=== PATIENT | female | born 1990 | race Two or more races ===

== ENCOUNTER 2022-01-01 16:59 | Outpatient (REF) | payer OTHER, SELFPAY ==
--- NOTE | ~2022-01-01 | XR_ITS ---
EXAMINATION: XR LUMBOSACRAL SPINE CLINICAL INFORMATION: Lower back pain. COMPARISON: None TECHNIQUE: AP, lateral, and both oblique views of the lumbosacral spine. FINDINGS: Vertebral body heights and alignment are normal. There is mild disc space narrowing at L5-S1. The remaining disc spaces are relatively well-maintained. No acute fracture or spondylolisthesis is seen. The posterior elements are intact. An intrauterine device is noted. XR/XR lumbar spine 2-3V IMPRESSION: 1. There is mild degenerative disc disease at L5-S1. 2. No acute fracture or spondylolisthesis is seen.
== END 2022-01-01 17:00 | disposition home or self-care (01) ==
LOC: HO.XRAY 16:59
PROVIDERS: PCP Family Medicine; Visit Provider Family Medicine
DX: M54.50 Low back pain, unspecified (principal)
CPT/HCPCS: 72100

== ENCOUNTER 2022-11-12 13:52 | Outpatient (REF) | payer OTHER, SELFPAY ==
--- NOTE | ~2022-11-12 | US_ITS ---
EXAMINATION: US PELVIS CLINICAL INFORMATION: Intermenstrual bleeding, IUD check. COMPARISON: None available. TECHNIQUE: Ultrasound of the pelvis is performed using both transabdominal and transvaginal transducers along with Doppler. Transvaginal imaging is performed due to inadequate visualization transabdominally. FINDINGS: Uterus: The uterus is anteverted, retroflexed and measures 9.4 x 5.3 x 5.5 cm. The there is an IUD well located within the endometrial canal. Endometrium is not visualized visualized hence thickness cannot be calculated. The uterus is smooth in contour and has normal myometrial echogenicity. No visible fibroid. There are multiple small nabothian cysts seen. Adnexa: Both ovaries are visualized. There is normal color flow to the adnexa. There is no ovarian torsion. There is no pelvic ascites or fluid collection. Right ovary measures 2.1 x 1.4 x 1.5 cm and volume 2.3 mL. It appears unremarkable. Previously right ovary measured 2.8 x 2.1 x 2.6 cm. Left ovary measures 2.2 x 1.7 x 2.5 cm and volume 4.9 mL. It appears unremarkable. Previously it measured 2.3 x 1.4 x 2.1 cm. There is no free fluid in cul-de-sac. US/US pelvic and transvaginal IMPRESSION: 1. IUD well located within the endometrial canal. The uterus is retroflexed and anteverted. 2. Small nabothian cysts in the cervix. 3. The ovaries are unremarkable. 4. There is no free fluid in the cul-de-sac..
== END 2022-11-12 13:53 | disposition home or self-care (01) ==
LOC: HO.US 13:52
PROVIDERS: PCP Family Medicine; Visit Provider Advanced Practice Midwife
DX: Z30.431 Encounter for routine checking of intrauterine contraceptive device (principal)
CPT/HCPCS: 76830; 76856

== ENCOUNTER 2024-03-02 08:10 | Outpatient (REF) | payer OTHER, SELFPAY ==
[2024-03-02 11:19] LABS: MANUAL DIFF FLAG NO
[2024-03-02 11:29] LABS: Basophils Percent Auto 0.4 % (0-2); Eosinophils Absolute Auto 0.1 X10*3/uL (0.0-0.4); Eosinophils Percent Auto 1.9 % (0-4); Hematocrit 35.2 % (37.0-47.0); Hemoglobin 11.3 g/dl (12.0-16.0); Imm Gran Abs Auto 0.01 X10*3/uL (0.00-0.03); Imm Gran Pct Auto 0.2 % (0.0-0.4); Lymphocytes Absolute Auto 0.8 X10*3/uL (1.2-4.9); Lymphocytes Percent Auto 17.5 % (20-40); Mean Corpuscular HGB Conc 32.1 g/dl (31.0-35.0); Mean Corpuscular Hemoglobin 26.6 pg (27.0-33.0); Mean Corpuscular Volume 82.8 fL (80.0-98.0); Mean Platelet Volume 10.1 fL (9.4-12.3); Monocytes Absolute Auto 0.3 X10*3/uL (0.1-1.2); Monocytes Percent Auto 5.9 % (2-11); Neutrophils Absolute Auto 3.5 x10*3/uL (2.0-8.3); Neutrophils Percent Auto 74.1 % (45-73); Platelet Count 275 X10*3/uL (160-400); Red Blood Count 4.25 X10*6/uL (4.20-5.50); Red Cell Distribution Width 14.3 % (11.0-16.0); White Blood Count 4.7 X10*3/uL (4.8-10.8)
[2024-03-02 11:58] LABS: HIV AB/AG Nonreactive (Nonreactive); HIV Num 1 0.06 S/CO (0.00-0.99); Syphilis Screen Nonreactive (Nonreactive); ~HepC Num1 0.12 S/CO (0.00-0.79); ~Hepatitis C Antibody Nonreactive (Nonreactive)
[2024-03-02 12:01] LABS: Vitamin B12 411 pg/mL (200-900)
[2024-03-02 12:05] LABS: Anion Gap 12 (12-20); Blood Urea Nitrogen 9 mg/dL (9-16); Calcium 9.3 mg/dL (8.4-10.2); Carbon Dioxide 23 mmol/L (22-29); Chloride 110 mmol/L (96-108); Cholesterol 133 mg/dL (<200); Estimated Glomerular Filt Rate > 60; Ferritin 10 ng/mL (10-122); Glucose Random 96 mg/dL (60-115); HDL Cholesterol 45 mg/dL (>40); Iron 78 mcg/dL (30-160); LDL Cholesterol Calculated 76 mg/dL (<100); Percent Iron Saturation 22 % (15-50); Potassium 4.6 mmol/L (3.3-5.1); Sodium 140 mmol/L (135-145); TSH reflex Free T4 1.65 uIU/mL (0.32-4.0); Total Iron Binding Capacity 359 mcg/dL (228-428); Triglycerides 61 mg/dL (<150); Unsaturated Iron Binding 281 ug/dL
== END 2024-03-02 08:11 | disposition home or self-care (01) ==
LOC: HO.HHCL 08:10
PROVIDERS: Visit Provider Family Medicine
DX: Z00.00 Encounter for general adult medical examination without abnormal findings (principal); Z83.3 Family history of diabetes mellitus; Z11.3 Encounter for screening for infections with a predominantly sexual mode of transmission; D64.9 Anemia, unspecified
CPT/HCPCS: 36415; 80048; 80061; 82607; 82728; 83540; 84443; 85025; 86780; 86803; 87389

== ENCOUNTER 2024-11-06 17:27 | Outpatient (REF) | payer OTHER, SELFPAY ==
--- OUTSIDE RECORDS SUMMARY | 2024-11-06 17:29 | XMS_ITS | Clinical Summary ---
Author Organization [facility] Address [address] [place] [address] Phone Care Team Providers Care Car Checker Name Role Phone Enid Elizabeth MD Primary Care Provider [phone]- [phone] Allergies No known active allergies Medications ondansetron ODT (ZOFRAN-ODT) 4 mg disintegrating tabletIndications:N ausea and vomiting, unspecified vomiting type Dissolve 1 tablet (4 mg total) on top of the tongue every 8 (eight) hours if needed for nausea or vomiting for up to 10 doses. 10 tablet Active Encounters Date Type Department Care Team Description 09/10/2024 3:30 PM EDT - 09/10/2024 10:08 PM EDT Emergency [facility] Emergency [address] [place] [address] Nausea and vomiting, unspecified vomiting type (Primary Dx); Abdominal pain, epigastric Discharge Disposition: Home or Self Care from Last 3 Months Surgical History Surgery Date Site/Laterality Comments OTHER SURGICAL HISTORY PROCEDURE: DENIES PREVIOUS SURGERY OTHER SURGICAL HISTORY PROCEDURE: ID PREPARATION MOULAGE CUSTOM BREAST IMPLANT; COMMENT: 2017 Medical History Medical History Date Comments ASCUS of cervix with negativ e high risk HPV 07/04/15 DX:ASCUS of cervix with nega tive high risk HPV Fe deficiency anemia DX:Fe defic iency anemia Anxiety state DX:Anxiety state Migraine without aura DX:Migrain e without aura 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 Family History Medical History Relation Name Comments Arthritis Maternal Grandmother Breast cancer Maternal Grandmother Diabetes Maternal Grandmother Hypertension Maternal Grandmother Hypertension Mother Stroke Mother Breast cancer Other cousins Esophageal cancer Other chemothera py-alive Colon cancer Neg Hx Ovarian cancer Neg Hx Prostate cancer Neg Hx Relation Name Status Comments Maternal Grandmother Mother Other Social History Tobacco Use Types Packs/Day Years Used Date Smoking Tobacco: Never Smokeless Tobacco: Never Alcohol Use Standard Drinks/Week Comments No 0 (1 standard drink = 0.6 oz pur e alcohol) Comments Unknown Sex and Gender Information Value Date Recorded Sex Assigned at Female 09/10/2024 3:44 PM EDT Legal Sex Female 3:21 AM EST Gender Identity Female 09/10/2024 3:44 PM EDT Sexual Orientation Not on file Obstetrics History Last Filed Vital Signs Vital Sign Reading Time Taken Comments Blood Pressure 105/64 09/10/2024 9:57 PM EDT Pulse 92 09/10/2024 9:57 PM EDT Temperature 37.1 ??C (98.8 ??F) 09/10/2024 9:57 PM ED T Respiratory Rate 17 09/10/2024 9:57 PM EDT Oxygen Saturation 100% 09/10/2024 9:57 PM EDT Inhaled Oxygen Concentration - - Weight 69.9 kg (154 lb) 09/10/2024 2:19 PM EDT Height 154.9 cm (5' 1 ) 09/10/2024 2:19 PM EDT Body Mass Index 29.1 09/10/2024 2:19 PM EDT Plan of Treatment Health Maintenance Due Date Last Done Comments COVID-19 Vaccine ( season) 2024 07/25/2021, 11/08/2020, 10/18/2020 Cervical Cancer Screening: Pap Smear 04/17/2024 04/17/2021, 04/18/2019 Hepatitis B Vaccines (3 of 3 - 19+ 3-dose series) 08/29/2024 05/01/2024, 03/01/2024 Medicare Annual Wellness Visit 09/10/2024 Social Influencers of Health Screening 09/10/2024 Depression Screening 05/01/2025 05/01/2024 Cholesterol Screening (Lipid Panel) 2029 2024 DTaP,Tdap,and Td Vaccines (4 - Td or Tdap) 08/14/2029 08/14/2019, 05/18/2016, 03/28/2014 HPV Vaccines Completed 04/29/2017, 06/21, 03/12/2008 Influenza Vaccine Completed 03/01/2024, , 04/18/2019, Additional history exists HIV Screening Completed 2024 Hepatitis C Screening Completed 2024 HIB Vaccines Aged Out No longer eligi ble based on patient's age to complete this topic Hepatitis A Vaccines Aged Out No long er eligible based on patient's age to complete this topic IPV Vaccines Aged Out No longer eligi ble based on patient's age to complete this topic MMR Vaccines Aged Out No longer eligi ble based on patient's age to complete this topic Meningococcal ACWY Vaccine Aged Out N o longer eligible based on patient's age to complete this topic Meningococcal B Vaccine Aged Out No l onger eligible based on patient's age to complete this topic Pneumococcal Vaccine: Pediatrics (0 to 5 Years) and At-Risk Patients (6 to 64 Years) Aged Out No longer eligible based on patient's age to complete this topic RSV Immunization Patients Under 20 months Aged Out No longer eligible based on patient's age to complete this topic Varicella Vaccines Aged Out No longer eligible based on patient's age to complete this topic Procedures Procedure Name Priority Date/Time Associated Diagnosis Comments CT ABDOMEN PELVIS W CONTRAST STAT 09/10/2024 8:58 PM EDT XR ABDOMEN 2 VIEWS STAT 09/10/2024 8: 21 PM EDT POC , URINE DIAGNOSTIC STAT 09/10/2024 7:27 PM EDT [id number], RSV, FLU A AND B QUALITATIVE RT-PCR, INTERNAL LAB STAT 09/10/2024 5:29 PM EDT HCG, SERUM, QUALITATIVE STAT Add-on 09/10/2024 2:24 PM EDT CBC WITH AUTO DIFFERENTIAL STAT 09/10/2024 2:24 PM EDT LIPASE STAT 09/10/2024 2:24 PM EDT COMPREHENSIVE METABOLIC PANEL STAT 09/10/2024 2:24 PM EDT CBC AND DIFFERENTIAL STAT 09/10/2024 2:24 PM EDT PAP SMEAR Routine 04/18/2019 from Last 3 Months or Most Recently Relevant to Health Maintenance Results * CT Abdomen Pelvis w Contrast (09/10/2024 8:58 PM EDT) Anatomical Region Laterality Modality Body Computed Tomogra phy 09/10/2024 9:22 PM EDT Impressions 09/10/2024 9:22 PM EDT 1. No acute intraabdominal or pelvic pathology. This document has been electronically signed by: Marla Guevara MD on 09/10/2024 21:22:55 Narrative 09/10/2024 9:22 PM EDT INDICATION: epigastric pain, not passing flatus CT abdomen and pelvis with contrast Comparison: None Findings: Mild dependent atelectasis. Bilateral breast implants. Hepatic steatosis. Gallbladder, pancreas, spleen, and adrenal glands are within normal limits. No biliary duct dilatation. No hydronephrosis. Symmetric contrast enhancement of the kidneys. No bowel obstruction, pneumoperitoneum, or pneumatosis. Normal appendix. Retroverted uterus. Probable nabothian cysts in the cervix. Trace free fluid in the pelvis, likely physiologic. No acute fracture. Procedure Note Marla Guevara MD - 09/10/2024 INDICATION: epigastric pain, not passing flatus CT abdomen and pelvis with contrast Comparison: None Findings: Mild dependent atelectasis. Bilateral breast implants. Hepatic steatosis. Gallbladder, pancreas, spleen, and adrenal glands are within normal limits. No biliary duct dilatation. No hydronephrosis. Symmetric contrast enhancement of the kidneys. No bowel obstruction, pneumoperitoneum, or pneumatosis. Normal appendix. Retroverted uterus. Probable nabothian cysts in the cervix. Trace free fluid in the pelvis, likely physiologic. No acute fracture. IMPRESSION: 1. No acute intraabdominal or pelvic pathology. This document has been electronically signed by: Marla Guevara MD on 09/10/2024 21:22:55 us [facility] EWING IMG CT PROCEDURES Final R esult * XR Abdomen 2 Views (09/10/2024 8:21 PM EDT) Anatomical Region Laterality Modality Body Radiographic Corina ging 09/11/2024 9:10 AM EDT Impressions 09/11/2024 9:12 AM EDT Impression: 1. No evidence of bowel obstruction. 2. Large amount of stool throughout the colon suggesting constipation. Telerad PA ([id number]) -------- FINAL REPORT -------- Dictated By: Lisa Hope Dictated Date: 09/11/2024 09:10 ET Assigned Physician: Lisa Hope Reviewed and Electronically Signed By: Lisa Hope Signed Date: 09/11/2024 09:12 ET Workstation ID: [id number] Transcribed By: Self Edit Transcribed Date: 09/11/2024 09:10 ET Narrative 09/11/2024 9:12 AM EDT History: Abdominal pain and vomiting. Findings: AP supine an upright views of the abdomen are submitted. No bowel dilatation is seen. A large amount of stool is seen throughout the colon. No air-fluid levels are identified. There is no free air. Solid visceral outlines are unremarkable. Few pelvic phleboliths are incidentally noted. There is a transitional lumbosacral segment. Procedure Note Lisa Hope MD - 09/11/2024 History: Abdominal pain and vomiting. Findings: AP supine an upright views of the abdomen are submitted. No bowel dilatation is seen. A large amount of stool is seen throughoutthe colon. No air-fluid levels are identified. There is no free air. Solid visceral outlines are unremarkable. Few pelvic phleboliths areincidentally noted. There is a transitional lumbosacral segment. IMPRESSION: Impression: 1. No evidence of bowel obstruction. 2. Large amount of stool throughout the colon suggesting constipation. Telerad PA ([id number]) -------- FINAL REPORT -------- Dictated By: Lisa Hope Dictated Date: 09/11/2024 09:10 ET Assigned Physician: Lisa Hope Reviewed and Electronically Signed By: Lisa Hope Signed Date: 09/11/2024 09:12 ET Workstation ID: [id number] Transcribed By: Self Edit Transcribed Date: 09/11/2024 09:10 ET Lino EWING IMG XR PROCEDURES Final R esult * POC , urine manually resulted (09/10/2024 7:27 PM EDT) Pathologist [facility] HCG, Ur POC Negative Negative POC hCG Int QC Pass? Yes Yes Urine Urine specimen obtained by clean catch procedure / Unknown 09/10/2024 7:27 PM EDT Wilbert Gagnon MD POINT OF CARE TEST ENTER/ED IT ORDERABLES Final Result * [id number], RSV, Influenza A and B qualitative RT-PCR (09/10/2024 5:29 PM EDT) [facility] Influenza A PCR Not Detected Not Detected LAB MICROBIOLOGY METHOD 09/10/2024 6:30 PM EDT [facility] Influenza B PCR Not Detected Not Detected LAB MICROBIOLOGY METHOD 09/10/2024 6:30 PM EDT [facility] RSV PCR Not Detected Not Detected LAB MICROBIOLOGY METHOD 09/10/2024 6:30 PM EDT [facility] SARS COV-2 Not Detected Not Detected LAB MICROBIOLOGY METHOD 09/10/2024 6:30 PM EDT [facility] Swab Both anterior nares / Unknown Non-blood Collection / Unknown 09/10/2024 5:29 PM EDT 09/10/2024 5:46 PM EDT Narrative [facility] - 09/10/2024 6:30 PM EDT Disclaimer: ??Testing was performed using the [employer] GeneXpert Xpress SARS-CoV-2 _Flu_RSV PLUS PCR assay. ??The manner in which this information is used to guide patient care is the responsibility of the healthcare provider. ??Results should be correlated with the clinical history, epidemiological data, and other data available to the clinician evaluating the patient. ??Negative results do not preclude infection. ??This test has been authorized by the FDA under an Emergency Use Authorization (EUA). ??This test is only authorized for the duration of time the declaration that circumstances exist justifying the authorization of the emergency use of in vitro diagnostic tests for detection of SARS-CoV-2 virus and/or diagnosis of COVID-19 infection under section 564 (b) (1) of the Act, 21 U.S.C 360bbb-3 (b) (1), unless the authorization is terminated or revoked sooner. ?? Reference Range: Not Detected Fact sheet for Healthcare providers can be found at https://www.fda.gov/media/506401/download. ?? Fact sheet for Healthcare patients can be found at https://www.fda.gov/media/880887/download. [facility] LAB MICROBIOLOGY - GENERA L ORDERABLES Final Result [facility] [address] [place] [address], * (ABNORMAL) CBC auto differential (09/10/2024 2:24 PM EDT) WBC 11.2(H) 4.8 - 10.8 K/mcL LAB HEMETOLOGY METHOD 09/10/2024 3:03 PM EDT [facility] RBC 4.40 3.80 - 4.80 M/mcL LAB HEMETOLOGY METHOD 09/10/2024 3:03 PM EDT [facility] Hemoglobin 11.1(L) 11.5 - 16.0 g/dL LAB HEMETOLOGY METHOD 09/10/2024 3:03 PM EDT [facility] Hematocrit 36.5 35.0 - 47.0 % LAB HEMETOLOGY METHOD 09/10/2024 3:03 PM EDT [facility] MCV 82.4 79.0 - 98.0 FL LAB [facility]OLOG[facility] MCH 25.1(L) 27.0 - 32.0 pcg LAB HEMETOLOGY METHOD 09/10/2024 3:03 PM [facility] MCHC 30.4(L) 32.0 - 37.0 g/dL LAB HEMETOLOGY METHOD 09/10/2024 3:03 PM [facility] RDW 13.5 11.0 - 15.0 % LAB HEMETOLOGY METHOD 09/10/2024 3:03 PM [facility] Platelets 318 130 - 400 K/mcL LAB HEMETOLOGY METHOD 09/10/2024 3:03 PM [facility] MPV 9.6 7.0 - 11.0 FL LAB HEMETOLOGY METHOD 09/10/2024 3:03 PM [facility] NRBC 0.0 <1.0 % LAB HEMETOLOGY METHOD 09/10/2024 3:03 PM [facility] NRBC Absolute 0.00 <0.10 K/mcL LAB HEMETOLOGY METHOD 09/10/2024 3:03 PM [facility] Neutrophils Relative 93.1 % LAB HEMETOLOGY METHOD 09/10/2024 3:03 PM [facility] Lymphocytes Relative 3.3 % LAB HEMETOLOGY METHOD 09/10/2024 3:03 PM [facility] Monocytes Relative 2.9 % LAB HEMETOLOGY METHOD 09/10/2024 3:03 PM [facility] Eosinophils Relative 0.2 % LAB HEMETOLOGY METHOD 09/10/2024 3:03 PM [facility] Basophils Relative 0.1 % LAB HEMETOLOGY METHOD 09/10/2024 3:03 PM EDT [facility] Immature Granulocytes Relative 0.4 % LAB HEMETOLOGY METHOD 09/10/2024 3:03 PM EDT [facility] Neutrophils Absolute 10.43(H) 1.50 - 7.00 K/mcL LAB HEMETOLOGY METHOD 09/10/2024 3:03 PM EDT [facility] Lymphocytes Absolute 0.37(L) 1.00 - 5.00 K/mcL LAB HEMETOLOGY METHOD 09/10/2024 3:03 PM EDT [facility] Monocytes Absolute 0.32 0.20 - 1.00 K/mcL LAB HEMETOLOGY METHOD 09/10/2024 3:03 PM EDT [facility] Eosinophils Absolute 0.02 0.00 - 0.50 K/mcL LAB HEMETOLOGY METHOD 09/10/2024 3:03 PM EDT [facility] Basophils Absolute 0.01 0.00 - 0.20 K/mcL LAB HEMETOLOGY METHOD 09/10/2024 3:03 PM EDT [facility] Immature Granulocytes Absolute 0.04(H) 0.00 - 0.03 K/mcL LAB HEMETOLOGY METHOD 09/10/2024 3:03 PM EDT [facility] Blood Venous blood specimen / Unknown Venipuncture / Unknown 09/10/2024 2:24 PM EDT 09/10/2024 2:56 PM EDT us Wilbert Gagnon MD LAB BLOOD ORDERABLES Final Result [facility] [address] [place] [address], * hCG, serum, qualitative (09/10/2024 2:24 PM EDT) hCG Qual Negative Negative 09/10/2024 6:58 PM EDT [facility] Blood Venous blood specimen / Unknown Venipuncture / Unknown 09/10/2024 2:24 PM EDT 09/10/2024 2:56 PM EDT [facility] LAB BLOOD ORDERABLES Destiney l Result Performing Organization Address [facility]/ZIP Co de Phone Number [facility] [address] [place] [address], [place] [phone] * Lipase (09/10/2024 2:24 PM EDT) [facility] Lipase 32 13 - 75 unit/L LAB CHEMISTRY METHOD 09/10/2024 3:25 PM EDT [facility] Blood Venous blood specimen / Unknown Venipuncture / Unknown 09/10/2024 2:24 PM EDT 09/10/2024 2:56 PM EDT Wilbert Gagnon MD LAB BLOOD ORDERABLES Final Result Performing Organization Address [facility]/ZIP Co de Phone Number [facility] [address] [place] [address], [place] [phone] * (ABNORMAL) Comprehensive metabolic panel (09/10/2024 2:24 PM EDT) [facility] Sodium 139 133 - 145 mmol/L LAB CHEMISTRY METHOD 09/10/2024 3:25 PM EDT [facility] Potassium 4.7 3.5 - 5.5 mmol/L LAB CHEMISTRY METHOD 09/10/2024 3:25 PM EDT [facility] Chloride 108 96 - 110 mmol/L LAB CHEMISTRY METHOD 09/10/2024 3:25 PM EDT [facility] CO2 24 21 - 32 mmol/L LAB CHEMISTRY METHOD 09/10/2024 3:25 PM EDT [facility] Anion Gap 7 3 - 11 LAB CHEMISTRY METHOD 09/10/2024 3:25 PM EDT [facility] Glucose 108(H) 70 - 100 mg/dL LAB CHEMISTRY METHOD 09/10/2024 3:25 PM [facility] BUN 12 5 - 25 mg/dL LAB CHEMISTRY METHOD 09/10/2024 3:25 PM [facility] Creatinine 0.76 0.50 - 1.10 mg/dL LAB CHEMISTRY METHOD 09/10/2024 3:25 PM [facility] eGFR 106 >=60 mL/min/1. 73m2 LAB CHEMISTRY METHOD 09/10/2024 3:25 PM [facility] Comment:Calculation based on the??Chronic Kidney Disease Epidemiology Collaboration (CKD-EPI) equation refit??without adjustment for race. BUN/Creatinine Ratio 15.8 LAB CHEMISTRY METHOD 09/10/2024 3:25 PM [facility] Calcium 9.4 8.5 - 10.5 mg/dL LAB CHEMISTRY METHOD 09/10/2024 3:25 PM [facility] AST (SGOT) 12 10 - 42 unit/L LAB CHEMISTRY METHOD 09/10/2024 3:25 PM [facility] ALT (SGPT) 17 10 - 60 unit/L LAB CHEMISTRY METHOD 09/10/2024 3:25 PM [facility] Alkaline Phosphatase 70 42 - 121 unit/L LAB CHEMISTRY METHOD 09/10/2024 3:25 PM [facility] Total Protein 7.7 6.0 - 8.0 g/dL LAB CHEMISTRY METHOD 09/10/2024 3:25 PM [facility] Albumin 4.4 3.2 - 5.0 g/dL LAB CHEMISTRY METHOD 09/10/2024 3:25 PM [facility] Total Bilirubin 0.7 0.0 - 1.4 mg/dL LAB CHEMISTRY METHOD 09/10/2024 3:25 PM [facility] Blood Venous blood specimen / Unknown Venipuncture / Unknown 09/10/2024 2:24 PM EDT 09/10/2024 2:56 PM EDT us Wilbert Gagnon MD LAB BLOOD ORDERABLES Final Result [facility] [address] [place] [address], * Pap smear (04/18/2019) 04/18/2019 Narrative HISTORICAL TESTING LAB RESULTING AGENCY - 04/20/2019 4:05 PM EDT [id number] THINPREP PAP, IMAGED: NEGATIVE FOR SQUAMOUS INTRAEPITHELIAL LESION AND MALIGNANCY . JIMMIE BERNAL(ASCP) (CASE ELECTRONICALLY SIGNED 04 20 2019) RESULT OF APTIMA HIGH RISK HPV ASSAY: HIGH RISK HPV: ??NEGATIVE (SEROTYPES 16,18,31,33,35,39,45,51,52,56,58,59,66,68) COMPLETED ON 2019-04-20 ADEQUACY: SATISFACTORY ENDOCERVICAL/TRANSFORMATION ZONE COMPONENT ABSENT. SOURCE: THINPREP PAP HPV ANY DX: ??REFLEX 16 AND 18, CERVICAL, IMAGED CLINICAL INFORMATION: HPV ANY DIAGNOSIS. LMP 01/21/19, , Z12.4, POS ASCUS. us Elisa Good CNM LAB CYTOLOGY ORDERABLES Final R esult HISTORICAL TESTING LAB RESULTING AGENCY from Last 3 Months or Most Recently Relevant to Health Maintenance Insurance [facility] MEDICARE Member Subscriber Plan / Payer (Ef fective 2019-Present) Name:Samara Jose Relation to Subscriber:Self Name:Samara Jose Payer ID:[id number] Group ID:[id number] Type:Not on file Address: [place] [address] [address] [phone] Care Teams Car Checker Relationship Specialty Start Date End Date LafayetteEnid solomon MD [address] [place] [address] [place] [address] PCP - General 06/03/10
--- OUTSIDE RECORDS SUMMARY | 2024-11-06 17:29 | XMS_ITS | Encounter Summary ---
Author Organization [employer] Address [address] [place] [address] [address] [place] [address] Care Team Providers Care Data Entry Representative Name Role Phone Enid Elizabeth MD Primary Care Provider [phone]- [phone] Reason for Visit * Reason Onset Date Comments CHART PREP 11/03/2024 Encounter Details Date Type Department Care Team ([facility] st Contact Info) Description 11/03/2024 Telephone [facility] MEDICINE [address], [place] [phone] Mohini Urbano CNM [address] [place] [address] CHART PREP Social History Tobacco Use Types Packs/Day Years Used Date Smoking Tobacco: Never Smokeless Tobacco: Never Depression Answer Date Recorded Patient Health Questionnaire-9 Score 14 05/01/2024 Patient Health Questionnaire-9 Score 14 05/01/2024 Last PHQ-9: Questionnaire Data Not on file 1 07/01/2023 Housing Stability Answer Date Recorded What is your housing situation today? I have jasmina wilhelm 09/08/[address] you li ve. Do you have problems with any of the following? None of the above 09/08/2023 Food Insecurity Answer Date Recorded Within the past 12 months, y ou worried that your food would run out before you got money to buy more: Never True 09/08/2023 Within the past 12 months,th e food you bought just didn't last and you didn't have enough money to get more: Never True Transportation Answer Date Recorded In the past 12 months, has l ack of transportation kept you from medical appts, meetings, work or from getting things needed for daily living? No 09/08/2023 Utilities Answer Date Recorded In the past 12 months, has t he electric, gas, oil or water company threatened to shut off services in your home? No 09/08/2023 Depression Answer Date Recorded Patient Health Questionnaire-2 Score 4 05/01/2024 Internet Access Answer Date Recorded Internet Access Q1 Yes 02/18/2024 Internet Access Q2 Not on file 02/18/2024 Comments Unknown Sex and Gender Information Value Date Recorded Sex Assigned at Female 04/20/2022 10:16 AM EDT Legal Sex Female 10:16 AM EDT Gender Identity Female 04/20/2022 10:16 AM EDT Sexual Orientation Bisexual 04/18/2024 11 :00 AM EDT documented as of this encounter Miscellaneous Notes * Telephone Encounter - Angelica Lopez [place] - 11/03/2024 11:31 AM EDT Chart Prep Labs: not applicable Images: not applicable Referrals: not applicable Vaccines due: Hep B Screenings: LMP Overdue care gaps: SBIRT, SDOH, PHQ-9, MAGDIEL-7, Oral health screening, and Disability screen documented in this encounter Plan of Treatment Not on file documented as of this encounter Visit Diagnoses Not on filedocumented in this encounter Additional Health Concerns Assessment Noted Time PHQ-9 Depression Total Score: 14 024 12:04 PM EST documented as of this encounter Care Teams Data Entry Representative Relationship Specialty Start Date End Date Enid Elizabeth MD [address] [place] [id number] PCP - General Family Medicine 06/21/18 documented as of this encounter
--- OUTSIDE RECORDS SUMMARY | 2024-11-06 17:29 | XMS_ITS | Encounter Summary ---
Author Organization [employer] Address [address] [place] [address] [address] [place] [address] Care Team Providers Care Family Services Assistant Name Role Phone Enid Elizabeth MD Primary Care Provider [phone]- [phone] Reason for Referral * Imaging (Urgent) - Authorized Specialty Diagnoses / Procedures Referred By Contac t Referred To Contact Radiology Diagnoses Displacement of intrauterine contraceptive device, initial encounter Procedures Us Pelvis complete Mohini Urbano CNM [address] [place] [address] Phone: tel: fax: [address] Phone: tel: fax: Referral ID Status Reason Start Date Expiration Date V isits Requested Visits Authorized [id number] Authorized 11/06/2024 11/06/2025 1 1 * Imaging (Urgent) - Authorized Specialty Diagnoses / Procedures Referred By Contac t Referred To Contact Radiology Diagnoses Displacement of intrauterine contraceptive device, initial encounter Procedures US Pelvis Transvaginal Mohini Urbano CNM [address] [place] [address] Phone: tel: fax: [address] Phone: tel: fax: Referral ID Status Reason Start Date Expiration Date V isits Requested Visits Authorized [id number] Authorized 11/06/2024 11/06/2025 1 1 Reason for Visit * Reason Comments Gynecologic Exam Encounter Details Date Type Department Care Team (Latest Contact Info) Description 11/06/2024 9:15 AM EDT Office Visit [facility] [address] [place] [address] Mohini Urbano CNM [address] [place] [address] Displacement of intrauterine contraceptive device, initial encounter (Primary Dx); Dysuria Social History Tobacco Use Types Packs/Day Years Used Date Smoking Tobacco: Never Smokeless Tobacco: Never Alcohol Use Standard Drinks/Week Comments Never 0 (1 standard drink = 0.6 oz pur e alcohol) Depression Answer Date Recorded Patient Health Questionnaire-9 [...] Access Q2 Not on file 02/18/2024 Comments No Sex and Gender Information Value Date Recorded Sex Assigned at Female 04/20/2022 10:16 AM EDT Legal Sex Female 10:16 AM EDT Gender Identity Female 04/20/2022 10:16 AM EDT Sexual Orientation Bisexual 04/18/2024 11 :00 AM EDT documented as of this encounter Last Filed Vital Signs Vital Sign Reading Time Taken Comments Blood Pressure 124/77 11/06/2024 9:18 AM EDT Pulse 82 11/06/2024 9:18 AM EDT Temperature 36.2 ??C (97.2 ??F) 11/06/2024 9:18 AM ED T Respiratory Rate 16 11/06/2024 9:18 AM EDT Oxygen Saturation - - Inhaled Oxygen Concentration - - Weight 71.2 kg (157 lb) 11/06/2024 9:18 AM EDT Height 154.9 cm (5' 1 ) 11/06/2024 9:18 AM EDT Body Mass Index 29.66 11/06/2024 9:18 AM EDT documented in this encounter Progress Notes * Mohini Urbano CNM - 11/06/2024 9:15 AM EDT Subjective Patient ID: Samara Mariscal is a 34 y.o. female who presents for [employer] visit. Today pt is reporting that her IUD expelled 08/04/24. She said that she felt the strings in her vaginal canal and the IUD came out fully. She confirms that the IUD was in it's T shape however she wants to ensure that no retained fragments are present. Today her sx are pelvic pain and cramping outside of menses. She denies vaginal sx including discharge, vaginal discomfort, odor. She denies fever chills and flank pain, however she reports she had one instance of vaginal burningwith urination on Saturday 11/04. Today she denies vaginal burning with urination. Pt reports her menses are regular, bleeding is moderate. She is not currently sexually active, no plans for at this time. Pelvic ultrasound 10/2022 with IUD in good position. No mention of IUD on CT or Xray 08/2024. Pap NIL/HPV neg, gonorrhea, chlamydia, trichomonas negative 03/2021. Gonorrhea and chlamydia negative 09/2022. No new partners since last STI testing. ParaGard inserted around 2019. Visit by AGUEDA Blandon, under my supervision. Review of Systems Constitutional: Negative for chills and fever. Genitourinary: Positive for pelvic pain. Negative for decreased urine volume, difficulty urinating,dyspareunia, dysuria, flank pain, frequency, menstrual problem, urgency, vaginal bleeding, vaginal discharge and vaginal pain. Objective BP 124/77 (BP Location: Left arm, Patient Position: Sitting, BP Cuff Size: Adult) Pulse 82 Temp97.2 ??F (36.2 ??C) (Temporal) Resp 16 Ht 5' 1 (1.549 m) Wt 157 lb (71.2 kg) LMP 10/20/2024 (Exact Date) BMI 29.66 kg/m?? Physical Exam Exam conducted with a controls technician present (Mohnii Urbano CNM). Abdominal: Tenderness: There is abdominal tenderness in the suprapubic area. Genitourinary: General: Normal vulva. Vagina: Normal. No foreign body. No erythema or tenderness. Cervix: Discharge present. No cervical motion tenderness, friability, lesion, erythema or cervical bleeding. Uterus: Normal. Not deviated, not enlarged, not fixed, not tender and no uterine prolapse. Adnexa: Right adnexa normal and left adnexa normal. Right: No mass or tenderness. Left: No mass or tenderness. Comments: No IUD fragments visualized. Assessment/Plan Diagnoses and all orders for this visit: Displacement of intrauterine contraceptive device, initial encounter - US Pelvis Transvaginal; Future - Us Pelvis complete; Future Will obtain pelvic us to ensure there are no retained IUD fragments in place. We also discussed plans for future contraception. Pt plans to continue with Copper IUD as this is her preferred method. Once we confirm no retained fragments with ultrasound, pt plans to f/u to have IUD reinserted. Counseled pt about risk of IUD re-expulsion. We also discussed differentials for her pelvic pain including her chronic constipation. Dysuria - POCT urinalysis dipstick manually resulted - Culture, Urine, Routine U/A today showed trace blood Will send for culture and treat accordingly. documented in this encounter Plan of Treatment Scheduled Orders Name Type Priority Associated Diagnoses Orde r Schedule US Pelvis Transvaginal Imaging Urgent Displacement of intrauterine contraceptive device, initial encounter Expected: 11/06/2024, Expires: 11/06/2025 Us Pelvis complete Imaging Urgent Displacement of intrauterine contraceptive device, initial encounter Expected: 11/06/2024, Expires: 11/06/2025 Culture, Urine, Routine Microbiology Routine Dysuria Ordered: 11/06/2024 documented as of this encounter Procedures Procedure Name Priority Date/Time Associated Diagnosis Comments POCT URINALYSIS DIPSTICK Routine 11/06/2024 9:47 AM EDT Dysuria documented in this encounter Results * (ABNORMAL) POCT urinalysis dipstick manually resulted (11/06/2024 9:47 AM EDT) Color, UA Yellow Clarity, UA Clear Glucose, UA Negative Bilirubin, UA Negative Ketones, UA Negative Spec Grav, UA 1.030 Blood, UA Positive(A) Negative, None Detected Comment:trace-lysed pH, UA 6.0 Protein, UA Negative Urobilinogen, UA 0.2 Leukocytes, UA Negative Negative, Rare, Trace Nitrite, UA Negative Negative, None Detected Appearance, UA clear QC Media Lot # [id number] Lot# Expiration Date [id number] Urine 11/06/2024 9:47 AM EDT Mohini JACOB POINT OF CARE TEST ENTER/ EDIT ORDERABLES Final Result documented in this encounter Visit Diagnoses Diagnosis Displacement of intrauterine contraceptive device, initial encounter- Primary Dysuria documented in this encounter Additional Health Concerns Assessment Noted Time PHQ-9 Depression Total Score: 14 024 12:04 PM EST documented as of this encounter Care Teams Family Services Assistant Relationship Specialty Start Date End Date Enid Elizabeth MD [address] [place] [id number] PCP - General Family Medicine 06/21/18 documented as of this encounter
--- OUTSIDE RECORDS SUMMARY | 2024-11-06 17:29 | XMS_ITS | Clinical Summary ---
Author Organization [employer] Address [address] [place] [address] [address] [place] [address] Care Team Providers Care Carbon Dioxide Operator Name Role Phone Enid Elizabeth MD Primary Care Provider [phone] Allergies No known active allergies Medications * This document contains information received from the source organization and may not represent a complete record from that organization. naltrexone-buPRO Pion ER (Contrave) 8-90 MG ER tabletIndication s:Obesity (BMI 30.0-34.9) TAKE 2 TABLET BY MOUTH TWICE A DAY 120 tablet 11 07/27/2024 Active Active Problems Patient Care Coordination No te Formatting of this note migh t be different from the original. [facility] Assembly Line Inspector: Zulema, member services number [phone], provider services line, , option 4 Sneller Hand Agency:declines Problem Noted Date Diagnosed Date Exercise counseling 07/26/2024 Assessment & Plan (07/27/2024 12:18 PM EST): Exercise Recommendations: At least 150 minutes of moderate-intensity physical activity per week, or an equivalent combination of moderate- and vigorous-intensity activity Dietary counseling 07/26/2024 Assessment & Plan (07/27/2024 12:12 PM EST): Dietary Recommendations: Fruits, vegetables, whole grains, protein foods, and fat-free or low-fat dairy products are healthy choices. Eat different types of protein foods in your diet. This can include seafood, lean meats, poultry, beans, peas, lentils, nuts, seeds, soy products, and eggs. Limit foods and beverages higher in added sugars, saturated fat, and sodium. Abdominal migraine, intractable 05/01/2024 Overview (05/02/2024): - Recommending acupuncture - Also to look for elemental triggers of her migraines 05/01/24 Assessment & Plan (05/01/2024 1:23 PM EST): - Recommending acupuncture - Also to look for elemental triggers of her migraines 05/01/24 Anemia 03/01/2024 Overview (05/02/2024): Lab Results Component Value Date FERRITIN 10 2024 FERRITIN 16 10/02/2022 HGB 11.3 (L) 2024 HGB 12.6 10/02/2022 HGB 11.0 (L) 01/01/2022 HEMATOCRIT 36.4 10/02/2022 HEMATOCRIT 34.4 (L) 01/01/2022 IRONTOTAL 79 10/02/2022 - Will continue to monitor Assessment & Plan (05/02/2024 1:07 PM EST): Lab Results Component Value Date FERRITIN 10 2024 FERRITIN 16 10/02/2022 HGB 11.3 (L) 2024 HGB 12.6 10/02/2022 HGB 11.0 (L) 01/01/2022 HEMATOCRIT 36.4 10/02/2022 HEMATOCRIT 34.4 (L) 01/01/2022 IRONTOTAL 79 10/02/2022 - Will continue to monitor Assessment & Plan (03/01/2024 2:45 PM EDT): -ordered labs 03/01/24 Family history of diabetes mellitus 03/01/2024 Overview (05/02/2024): Labs ordered on 03/01/24 were largely unremarkable Assessment & Plan (05/02/2024 1:09 PM EST): Labs ordered on 03/01/24 were largely unremarkable Assessment & Plan (03/01/2024 2:44 PM EDT): -ordered labs 03/01/24 Obesity (BMI 30.0-34.9) 03/01/2024 Overview (07/27/2024): -Discussed weight, diet, exercise with patient in relation to health conditions. Used motivational interviewing to illicit change talk and established initial goals with patient. -contrave started 03/01/24 --given BMI >30kg/m2 or >27kg/m2 with one or more weight related comorbidities pt is a candidate for glucagon-like peptide-1s (GLP-1) to assist with weight loss -to be used in combination with reduced calorie diet and increased physical activity - Pt was over weight at 176 lbs. Began contrive 03/01/24. Pts weight is now 164 lbs 05/01/24. Pt is hoping to lower her weight to 145 lbs within the next 9 - 12 months -doing well on Contrave, refill sent 07/27/24 Assessment & Plan (07/27/2024 12:12 PM EST): -Discussed weight, diet, exercise with patient in relation to health conditions. Used motivational interviewing to illicit change talk and established initial goals with patient. -contrave started 03/01/24 --given BMI >30kg/m2 or >27kg/m2 with one or more weight related comorbidities pt is a candidate for glucagon-like peptide-1s (GLP-1) to assist with weight loss -to be used in combination with reduced calorie diet and increased physical activity - Pt was over weight at 176 lbs. Began contrive 03/01/24. Pts weight is now 164 lbs 05/01/24. Pt is hoping to lower her weight to 145 lbs within the next 9 - 12 months -doing well on Contrave, refill sent 07/27/24 Assessment & Plan (07/27/2024 12:11 PM EST): >>ASSESSMENT AND PLAN FOR OVERWEIGHT WRITTEN ON 03/01/2024 2:51 PM BY JOHN VO -Discussed weight, diet, exercise with patient in relation to health conditions. Used motivational interviewing to illicit change talk and established initial goals with patient. --given BMI >30kg/m2 or >27kg/m2 with one or more weight related comorbidities pt is a candidate for glucagon-like peptide-1s (GLP-1) to assist with weight loss -to be used in combination with reduced calorie diet and increased physical activity -For Wegovy (semaglutide) Start 0.25mg subcutaneously qweek 1-4 weeks, increase to 0.5mg subcutaneously qweek for weeks 5-8, increase to 1mg subcutaneously qweek for weeks 9-1, Increase to 1.7 mg subcutaneously q week weeks 13-16, increase tp 2.4mg subcutaneously q week If dose is not tolerated consider delaying dose increase for 4 weeks. Treatment doses considered to be 1.7 or 2.4 mg senior living. -For Saxenda (liraglutide) Start with 0.6mg subcutaneously week one, increase to 1.2mg subcutaneously on week two , increase to 1.8 mg subcutaneously on week 3, increase to 2.4mg weekly for week 4, increase to 3.0mg subcutaneously weekly on week 5 -If medicaion is not tolerated, may delay dose for 1 week -If pt can not tolerate the 3mg dose, therapy should be discontinued -maintenance/treatment dose is 3mg weekly Assessment & Plan (07/27/2024 12:11 PM EST): >>ASSESSMENT AND PLAN FOR OVERWEIGHT WRITTEN ON 05/01/2024 1:13 PM BY JHONY FERMIN MA -Discussed weight, diet, exercise with patient in relation to health conditions. Used motivational interviewing to illicit change talk and established initial goals with patient. --given BMI >30kg/m2 or >27kg/m2 with one or more weight related comorbidities pt is a candidate for glucagon-like peptide-1s (GLP-1) to assist with weight loss -to be used in combination with reduced calorie diet and increased physical activity - Pt was over weight at 176 lbs. Began contrive 03/01/24. Pts weight is now 164 lbs 05/01/24. Pt is hoping to lower her weight to 145 lbs within the next 9 - 12 months Herpes zoster without complication 09/23/2023 Assessment & Plan (09/23/2023 1:28 PM EDT): Valacyclovir prescribed with ibuprofen if symptoms persist or worse report back Other specified health status 04/28/2023 Overview (05/01/2024): -next physical exam due after 03/01/2025 -eye care facilitated by [facility] -dental home is [facility] -health care proxy 03/01/24 done Assessment & Plan (03/01/2024 2:37 PM EDT): -next physical exam due after -eye care facilitated by [facility] -dental home is [facility] -health care proxy 03/01/24 already done. Anxiety 11/11/2022 Assessment & Plan (03/13/2024 8:56 AM EDT): During IBH Consult Samara presenting with depressed mood, Tearful, hopelessness, irritable mood, loss of interests/pleasure , sense of isolation/loneliness , change in appetite or weight overeating, changes in sleep difficulty falling asleep, fatigue/loss of energy, worthlessness, inappropriate/excessive guilt , difficulty concentrating and excessive worry/anxiety, difficulty controlling worry, anxiety/worry associated to restlessness and/or feeling keyed-up/On edge , easily fatigued , irritability, and sleep disturbance difficulty falling asleep, and sense of dread ; for a period of 18+ mo, for most or all symptoms in the context of family issues, illness or family illness, and lack of social/family support and network. Samara reported lack of family and social support are main trigger for symptoms. As a single mom, patient feels overwhelmed and stressed out and has no time for herself. Medication prescribed by PCP not started yet due to conflict with insurance coverage. clinician engaged patient with active/reflective listening. She was open to try breathing exercises during session. Pt was able to identify how current triggers are associated with presentation of sxs. Discussed importance of connecting with services and ask for help. Pt has difficulty sharing her emotions and verbalizing her needs to others. PCP will start medication to treat sxs (see PCP note). Assessment & Plan (03/07/2024 10:18 AM EDT): During IBH Consult Samara presenting with depressed mood, Tearful, hopelessness, irritable mood, loss of interests/pleasure , sense of isolation/loneliness , isolating, change in appetite or weight overeating, changes in sleep difficulty falling asleep, fatigue/loss of energy, worthlessness, inappropriate/excessive guilt , difficulty concentrating, indecisiveness and excessive worry/anxiety, difficulty controlling worry, anxiety/worry associated to restlessness and/or feeling keyed-up/On edge , easily fatigued , difficulty concentrating and/or mind going blank , irritability, and sleep disturbance difficulty falling asleep, and sense of dread ; for a period of 18+ mo, for most or all symptoms in the context of family issues, illness or family illness, and having minimal support. Samara presented with severe symptoms of anxiety and depression. 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 Samara feels overwhelmed and without hope and motivation. clinician engaged patient with active/reflective listening. She was open to try breathing exercises during session. Pt was able to identify how current triggers are associated with presentation of sxs. Discussed importance of connecting with services and ask for help. Pt has difficulty sharing her emotions and verbalizing her needs to others. PCP will start medication to treat sxs (see PCP note). Assessment & Plan (11/11/2022 3:51 PM EDT): Assessment: Patient presents with feeling down, hopeless, sleep disturbance, no motivation/feeling drained, feeling bad about herself, and trouble concentrating. She also presents with feeling anxious (gets sweaty, shaky, and hard to breathe), not able to stop worrying and worrying about many things. She has a difficult time to relax, is restless, and easily annoyed. Presentation is in the context of minimal support, being a single mother and sole provider, and caring for two young children with autism. Patient will benefit from OP therapy and psychopharmacology services. At this time Samara Mariscal meets criteria for Visit Diagnoses: Problem List Items Addressed This Visit Other Anxiety Moderate major depression, single episode (CMS/HCC) Patient ready to address current needs Yes Strengths include resilience PLAN: 1. Follow up with [facility]: Not recommended for follow-up 2. Patient goal is to be connected to services. 3. Behavioral Recommendations a. Patient will utilize depression and anxiety coping sheets b. Patient will engage in services once they are established c. Patient will reach out to [facility], if needed Pica 10/01/2022 Family planning 10/01/2022 Overview (10/01/2022): Referred for tubal ligation 10/01/2022. -Pt has 3 childern and genetic disorder. -2 children are autistic. -She does not desire more children. Assessment & Plan (05/01/2024 1:26 PM EST): Referred for tubal ligation 10/01/2022. -Pt has 3 childern and genetic disorder. -2 children are autistic. -She does not desire more children. Assessment & Plan (10/01/2022 3:53 PM EDT): Referred for tubal ligation 10/01/2022. -Pt has 3 childern and genetic disorder. -2 children are autistic. -She does not desire more children. Moderate major depression, single episode 2021 Overview (07/27/2024): 07/27/24 reports has TherapistTraci. -Declines needing psychiatrist at this time, well controlled on medications especially feeling improved with Contrave's secondary depression management. Assessment & Plan (07/27/2024 12:20 PM EST): 07/27/24 reports has TherapistTraci. -Declines needing psychiatrist at this time, well controlled on medications especially feeling improved with Contrave's secondary depression management. Assessment & Plan (05/01/2024 1:24 PM EST): Waiting on getting into [facility]. -referred to internal behavioral health for faster track. -discussed taking Bupropion as a dual drug for depression and weight loss. Will titrate as tolerable. - Will be connecting patient with N 05/01/24 Assessment & Plan (10/01/2022 1:19 PM EDT): Likely musculoskeletal. Non-focal, normal motor exam without neurological deficits. No back pain red-flags: bowel/bladder incontinence, IVDU, urinary retention, saddle anesthesia, or significant motor deficits. Recommend ibuprofen and muscle relaxer prn. Physical therapy referral offered. Acupuncture clinic offered. Lifting precaution sand stretching reviewed. ER precaution discussed. -X-ray ordered 01/01/22. -Referral to PT 01/01/22. Chronic lower back pain 01/02/2022 Overview (05/02/2024): Likely musculoskeletal. Non-focal, normal motor exam without neurological deficits. No back pain red-flags: bowel/bladder incontinence, IVDU, urinary retention, saddle anesthesia, or significant motor deficits. Recommend ibuprofen and muscle relaxer prn. Physical therapy referral offered. Acupuncture clinic offered. Lifting precaution sand stretching reviewed. ER precaution discussed. -X-ray ordered 01/01/22. -Referral to PT 01/01/22. - Lower back pain has returned. Referred to a trial of Physical Therapy before steroid therapy as well as taking Tylenol before starting PT to manage pain. Pt was referred to PT 05/01/24 Assessment & Plan (05/02/2024 1:01 PM EST): Likely musculoskeletal. Non-focal, normal motor exam without neurological deficits. No back pain red-flags: bowel/bladder incontinence, IVDU, urinary retention, saddle anesthesia, or significant motor deficits. Recommend ibuprofen and muscle relaxer prn. Physical therapy referral offered. Acupuncture clinic offered. Lifting precaution sand stretching reviewed. ER precaution discussed. -X-ray ordered 01/01/22. -Referral to PT 01/01/22. - Lower back pain has returned. Referred to a trial of Physical Therapy before steroid therapy as well as taking Tylenol before starting PT to manage pain. Pt was referred to PT 05/01/24 Vitamin D deficiency 01/02/2022 Fragile X syndrome 07/15/2012 Encounters Date Type Department Care Team Description 11/06/2024 9:15 AM EDT Office Visit [facility] [address] [place] [phone] Mohini Urbano CNM Displacement of intrauterine contraceptive device, initial encounter (Primary Dx); Dysuria 11/06/2024 Travel 11/03/2024 Telephone [facility] [address] [place], [place] [phone] Mohini Urbano CNM CHART PREP 09/04/2024 Telephone [facility] [address] [place] [address] Enid Elizabeth MD Medication Question from Last 3 Months Immunizations Immunization Administration Dates Next Due DTaP 03/28/2014 HPV 9-Valent 04/29/2017,07/02/2016 HPV, Quadrivalent 03/12/2008 Hep B, adult 05/01/2024,03/01/2024 Influenza Injectable Quadriv alant Preservative Free IIV4 MDCK 04/18/2019 Influenza injectable quadriv alent IIV4 with preservative 04/29/2017,05/18/2016 Influenza injectable quadrivalent preservative f ree 04/04/2021 Influenza, IIV3, injectable 02/26/2011 Influenza, Split (incl. purified surface antigen ) 05/04/2013 Influenza, seasonal, injectable, preservative fr ee 03/01/2024 Tdap 08/14/2019,05/18/2016 Family History Medical History Relation Name Comments Breast cancer Cousin 1 Throat cancer Cousin 2 Lung cancer Father Breast cancer Maternal Grandmother Hypertension Maternal Grandmother Diabetes Mother Hypertension Mother Relation Name Status Comments Cousin 1 Alive Cousin 2 Alive Father Maternal Grandmother Mother Social History Tobacco Use Types Packs/Day Years Used Date Smoking Tobacco: Never Smokeless Tobacco: Never Tobacco Cessation:Counseling Given: Not Answered Alcohol Use Standard Drinks/Week Comments Never 0 [...] Orientation Bisexual 04/18/2024 11 :00 AM EDT Last Filed Vital Signs Vital Sign Reading Time Taken Comments Blood Pressure 124/77 11/06/2024 9:18 AM EDT Pulse 82 11/06/2024 9:18 AM EDT Temperature 36.2 ??C (97.2 ??F) 11/06/2024 9:18 AM ED T Respiratory Rate 16 11/06/2024 9:18 AM EDT Oxygen Saturation 98% 05/01/2024 11:06 AM EST Inhaled Oxygen Concentration - - Weight 71.2 kg (157 lb) 11/06/2024 9:18 AM EDT Height 154.9 cm (5' 1 ) 11/06/2024 9:18 AM EDT Body Mass Index 29.66 11/06/2024 9:18 AM EDT Plan of Treatment Health Maintenance Due Date Last Done Comments Disability Screening 1990 Hepatitis B Vaccines (3 of 3 - 19+ 3-dose series) 08/29/2024 05/01/2024, 03/01/2024 SDOH Screening 09/07/2024 09/08/2023 Family Planning (PISQ) 2025 2024 Alcohol/Substance Use Screening 05/01/2025 05/01/2024 COVID-19 Vaccine (4 - season) 2025 07/25/2021, 11/08/2020, 10/18/2020 Postponed from 02/20/2024 (Patient Refused) Depression Screening 05/01/2025 05/01/2024, 05/01/20 Tobacco Screening 11/06/2025 11/06/2024 Cervical Cancer Screening 04/17/2026 HPV/Cotest 04/17/2026 04/17/2021 Pap Smear 04/17/2026 04/17/2021, 04/17/2021 Lipid Panel 2029 2024 DTaP/Tdap/Td Vaccines (4 - Td or Tdap) 08/14/2029 08/14/2019, 05/18/2016, 03/28/2014 Zoster Vaccines (1 of 2) 2040 RSV Patients and Patients Aged 60 years or older (1 - 1-dose 75+ series) 2065 HPV Vaccines Completed 04/29/2017, 06/21, 03/12/2008 Influenza Vaccine Completed 03/01/2024, , 04/18/2019, Additional history exists HIV Screening Completed 2024, 09/19, 01/01/2022 Hepatitis C Screening Completed 2024 , 10/02/2022, 01/01/2022 HIB Vaccines Aged Out No longer eligi [...] patient's age to complete this topic Meningococcal Vaccine Aged Out No alexander franco eligible based on patient's age to complete this topic Pneumococcal Vaccine: Pediatrics (0 to 5 Years) and At-Risk Patients (6 to 49) Years) Aged Out No longer eligible based on patient's age to complete this topic RSV under 20 months Aged Out No longe r eligible based on patient's age to complete this topic Rotavirus Vaccines Aged Out No longer eligible based on patient's age to complete this topic Procedures Procedure Name Priority Date/Time Associated Diagnosis Comments POCT URINALYSIS DIPSTICK Routine 11/06/2024 9:47 AM EDT Dysuria HEPATITIS C AB W/REFL TO HCV RNA, QN, PCR Routine 2024 8:15 AM EDT Routine screening for STI (sexually transmitted infection) HIV 1/2 ANTIGEN/ANTIBODY, FOURTH GENERATION W/RFL Routine 2024 8:15 AM EDT Routine screening for STI (sexually transmitted infection) LIPID PANEL, STANDARD Routine 2024 8:15 AM EDT Preventative health care THINPREP IMAGING PAP AND HPV MRNA E6/E7, WITH CT/NG, TRICHOMONAS Routine 04/17/2021 12:00 AM EDT PAP SMEAR Routine 04/17/2021 12:00 AM EDT from Last 3 Months or Most Recently Relevant to Health Maintenance Results * (ABNORMAL) POCT urinalysis dipstick manually [...] Media Lot # [id number] Lot# Expiration Date [id number] Urine 11/06/2024 9:47 AM EDT Mohini Urbano CNM POINT OF CARE TEST ENTER/ EDIT ORDERABLES Final Result * Hepatitis C Antibody with Reflex to HCV, RNA, Quantitative, Real-Time PCR (2024 8:15 AM EDT) Hepatitis C Antibody Nonreactive Nonreactive [facility] Comment:Antibodies to HCV no t detected; does not exclude early acuteHCV infection. Blood Venous blood specimen / Unknown 2024 8:15 AM EDT 2024 11:12 AM EDT Enid Elizabeth MD LAB BLOOD ORDERABLES Final Result Performing Organization Address City/[facility]/ZIP Co de Phone Number [facility] [address] [place] [phone] * HIV-1/2 Antigen and Antibodies, Fourth Generation, with Reflexes (2024 8:15 AM EDT) HIV AB/AG Nonreactive Nonreactive [facility] Comment:HIV-1 p24 Ag and/or HIV-1/HIV-2 Ab not detected.A test result that is nonreactive does not exclude thepossibility of exposure to or infection with HIV-1 and/orHIV-2. Nonreactive results in this assay for individualswith prior exposure to HIV-1 and/or HIV-2 may be due toantigen and antibody levels that are below the limit ofdetection of this assay.The [employer] HIV Ag/Ab Combo assay result andsupplemental assay results should be interpreted inconjunction with the patient's clinical presentation,history and other laboratory results. If the results areinconsistent with clinical evidence, additional testing issuggested to confirm the result. Blood Venous blood specimen / Unknown 2024 8:15 AM EDT 2024 11:12 AM EDT Enid Elizabeth MD LAB BLOOD ORDERABLES Final Result Performing Organization Address City/[facility]/ZIP Co de Phone Number [facility] [address] [place] [address] [phone] * Lipid Panel, Standard (2024 8:15 AM EDT) Triglycerides 61 <150 mg/dL [facility] Comment:Desirable Triglyceri de: less than 150 mg/dLBorderline High Triglyceride 150-199 mg/dLHigh Triglyceride: 200-499 mg/dLVery High Triglyceride: greater than or equal to 5OO mg/dL Cholesterol 133 <200 mg/dL [facility] Comment:Desirable Cholestero l: less than 200 mg/dLBorderline High Cholesterol: 200-239 mg/dLHigh Cholesterol: greater than 239 mg/dL LDL Cholesterol Calculated 76 <100 mg/dL [facility] Comment:Desirable LDL: less than 100 mg/dLNear Optimal/Above Optimal LDL: 110- 129 mg/dLBorderline High LDL: 130-159 mg/dLHigh LDL: 160-189 mg/dLVery High LDL: greater than or equal to 190 mg/dL HDL Cholesterol 45 >40 mg/dL [facility] Comment:Desirable HDL: great er than 40 mg/dL Note: This HDL assay may give artificially low results in patients with liver disease. Blood Venous blood specimen / Unknown 2024 8:15 AM EDT 2024 11:12 AM EDT us Enid Elizabeth MD LAB BLOOD ORDERABLES Final Result [facility] [address] [place] [phone] * THINPREP TIS PAP AND HPV mRNA E6/E7, CT/NG, TRICH (04/17/2021 12:00 AM EDT) Chlamydia trachomatis RNA, TMA, Urogenital NOT DETECTED NOT DETECTED [facility] Clinical Information: None given [facility] COMMENT SEE COMMENT [facility] Comment: The analytical performance characteristics of this assay, when used to test SurePath(TM) specimens have been determined by [employer]. The modifications have not been cleared or approved by the FDA. This assay has been validated pursuant to the CLIA regulations and is used for clinical purposes. ?? For additional information, please refer to https://education.b5media/faq/BQH215 (This link is being provided for information/ educational purposes only.) ?? COMMENT SEE [facility]MENT [facility] Comment: EXPLANATORY NOTE: ? The Pap is a screening test for cervical cancer. It is ?? not a diagnostic test and is subject to false negative ?? and false positive results. It is most reliable when a ?? satisfactory sample, regularly obtained, is submitted ?? with relevant clinical findings and history, and when ?? the Pap result is evaluated along with historic and ?? current clinical information. ?? COMMENT: This Pap test has been evaluated with computer assisted technology. [facility] Permanent Mold Supervisor: SEE COMMENT [facility] Comment: DMM, CT(ASCP) CT screening location: [address] ??[id number] HPV nRNA E6/E7 Not Detected Not Detected [facility] Comment: Methodology: Terrazzo Finisher Helper-Mediated Amplification This assay detects E6/E7 viral messenger RNA (mRNA) from 14 high-risk HPV types (16,18,31,33,35,39,45,51,52,56,58,59,66,68). ? The analytical performance characteristics of this assay have been determined by [employer]. The modifications have not been cleared or approved by the FDA. This assay has been validated pursuant to the CLIA regulations and is used for clinical purposes. ?? For additional information, please refer to http://[employer].b5media/faq/FFM845z1 (This link if provided for information/ educational purposes only.) Interpretation/Re sult: Negative for intraepithelial lesion or malignancy. [facility] LMP: NONE [facility]EN [facility] Neisseria gonorrhoeae RNA, TMA, Urogenital NOT DETECTED NOT DETECTED [facility] Prev. BX: NONE [facility]IVEN [facility] Prev. PAP: NONE [facility]IVEN [facility] SOURCE: None given [facility] Statement Of Adequacy: SEE COMMENT [facility] Comment: Satisfactory for evaluation. Endocervical/transformation zone component absent. Age and/or menstrual status not provided Trichomonas vaginalis, QL, TMA, PAP Vial NOT DETECTED NOT DETECTED [facility] Comment: The analytical performance characteristics of this assay have been determined by [employer]. The modifications have not been cleared or approved by the FDA. This assay has been validated pursuant to the CLIA regulations and is used for clinical purposes. ?? For additional information, please refer to http://education.b5media/ faq/Trichomonastma (This link is being provided for information/ educational purposes only.) ?? 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
--- OUTSIDE RECORDS SUMMARY | 2024-11-06 17:29 | XMS_ITS | Encounter Summary ---
Author Organization [employer] Address [address] [place] [address] 7 [place] [address] Care Team Providers Care Senior Applications Engineer Name Role Phone Enid Elizabeth MD Primary Care Provider +1- [phone] Encounter Details Date Type Department Care Team (Late st Contact Info) Description 07/28/2022 Abstract [facility] MED[facility]INE [address] [place], [place] [phone] Enid Elizabeth MD [address] [place], [place] [phone] Social History Tobacco Use Types Packs/Day Years Used Date Smoking Tobacco: Never Assessed Comments Unknown Sex and Gender Information Value Date Recorded Sex Assigned at Female 04/20/2022 10:16 AM EDT Legal Sex Female 10:16 AM EDT Gender Identity Female 04/20/2022 10:16 AM EDT Sexual Orientation Bisexual 04/18/2024 11 :00 AM EDT documented as of this encounter Plan of Treatment Not on file documented as of this encounter Procedures Procedure Name Priority Date/Time Associated Diagnosis Comments PAP SMEAR Routine 04/17/2021 12:00 AM EDT documented in this encounter Results * Pap Smear (04/17/2021 12:00 AM EDT) Swab us Historical Provider LAB CYTOLOGY ORDERABLES F inal Result IMAGING documented in this encounter Visit Diagnoses Not on filedocumented in this encounter Care Teams Senior Applications Engineer Relationship Specialty Start Date End Date Enid Elizabeth MD [address] [place] [address] PCP - General Family Medicine 06/21/18 documented as of this encounter
--- OUTSIDE RECORDS SUMMARY | 2024-11-06 17:29 | XMS_ITS | Encounter Summary ---
Author Organization [email or web address] Address [address] [place] [address] 7 [place] [address] Care Team Providers Care Mail Teller Name Role Phone Enid Elizabeth MD Primary Care Provider +1- [phone] Reason for Visit * Reason Onset Date Comments triage 10/28/2022 Encounter Details Date Type Department Care Team ([facility] st Contact Info) Description 10/28/2022 Telephone [facility] MEDICINE [address] [place], [place] [phone] Enid Elizabeth MD [address] [place], [place] [phone] triage Social History Tobacco Use Types Packs/Day Years Used Date Smoking Tobacco: Never Smokeless Tobacco: Never Comments Unknown Sex and Gender Information Value Date Recorded Sex Assigned at Female 04/20/2022 10:16 AM EDT Legal Sex Female 10:16 AM EDT Gender Identity Female 04/20/2022 10:16 AM EDT Sexual Orientation Bisexual 04/18/2024 11 :00 AM EDT COVID-19 Exposure Response Date Recorded In the last 10 days, have yo u been in contact with someone who was confirmed or suspected to have Coronavirus/COVID-19? No / Unsure 10/28/2022 11:56 AM EDT documented as of this encounter Miscellaneous Notes * Telephone Encounter - Clare Bradshaw RN - 10/28/2022 11:31 AM EDT Triage call Pt reports just finished period last week. Pt started abnormal spotting brownish color 2 days ago and now slightly increased and red but, using panty liner only. Pt is experiencing some abdominal cramping which comes and goes. Pt control is ParaGard IUD placed 3 years ago. Pt hasn't checked for placement and reports, I don't know how to do that . Pt requests to be seen. Apt with MANGO Sundeep @ 100pm 10/29. Protocol Used: Vaginal Bleeding - Abnormal (Adult) Protocol-Based Disposition: See in Office or Video Visit Today Override (Final) Disposition: See in Office or Video Visit Today or Tomorrow Override Reason: Other Video visit offer not recorded Positive Triage Question: * Patient wants to be seen * All higher-acuity triage questions were negative Care Advice Discussed: * Reasons To Call Back - Severe abdomen pain or lightheadedness occurs - test is positive - Bleeding worsens - Bleeding or spotting lasts over 7 days - You become worse * Telephone Encounter - Murtaza Harman - 10/28/2022 10:59 AM EDT Symptoms: Vaginal Bleeding - Not , Abdominal Pain - Female - Not Outcome: Talk to a nurse or provider within 15 minutes Reason: Severe pain now The caller accepted this outcome documented in this encounter Plan of Treatment Not on file documented as of this encounter Visit Diagnoses Not on filedocumented in this encounter Additional Health Concerns Assessment Noted Time PHQ-9 Depression Total Score: 6 10/02/19 23 3:59 PM EDT documented as of this encounter Care Teams Mail Teller Relationship Specialty Start Date End Date Enid Elizabeth MD [address] [place] [id number] PCP - General Family Medicine 06/21/18 documented as of this encounter
--- OUTSIDE RECORDS SUMMARY | 2024-11-06 17:29 | XMS_ITS | Encounter Summary ---
Author Organization [employer] Address [address] [facility] [address]t [place] [address] Care Team Providers Care Whitesmith Name Role Phone Enid Elizabeth MD Primary Care Provider +1- [phone] Encounter Details Date Type Department Care Team (Latest Contact Info) Description 11/06/2024 Travel Social History Tobacco Use Types Packs/Day Years [...] documented as of this encounter Care Teams Whitesmith Relationship Specialty Start Date End Date Enid Elizabeth MD [address] [place] [id number] PCP - General Family Medicine 06/21/18 documented as of this encounter
== END 2024-11-06 17:28 | disposition home or self-care (01) ==
LOC: HO.HHCLNP 17:27
PROVIDERS: Visit Provider Advanced Practice Midwife
DX: R30.0 Dysuria (principal)
CPT/HCPCS: 87086

== ENCOUNTER 2024-11-16 12:53 | Outpatient (REF) | payer OTHER, SELFPAY ==
--- OUTSIDE RECORDS SUMMARY | 2024-11-16 12:56 | XMS_ITS | Encounter Summary ---
Author Organization [employer] Address [address] [facility] 7 [place] [address] Care Team Providers Care Neon Installer Name Role Phone Enid Elizabeth MD Primary Care Provider +1- [phone] Reason for Visit * Reason Onset Date Comments Reschedule 09/22/2023 Encounter Details Date Type Department Care Team ([facility] st Contact Info) Description 09/22/2023 Telephone [facility] MEDICINE [address] [place], [place] [phone] Enid Elizabeth MD [address] [place], [place] [phone] Reschedule Social History Tobacco Use Types Packs/Day Years Used Date Smoking Tobacco: Never Smokeless Tobacco: Never Depression Answer Date Recorded Patient Health Questionnaire-9 Score 16 11/11/2022 Housing Stability Answer Date Recorded What is [...] Date Recorded Patient Health Questionnaire-2 Score 4 11/11/2022 Comments Unknown Sex and Gender Information Value Date Recorded Sex Assigned at Female 04/20/2022 10:16 AM EDT Legal Sex Female 10:16 AM EDT Gender Identity Female 04/20/2022 10:16 AM EDT Sexual Orientation Bisexual 04/18/2024 11 :00 AM EDT documented as of this encounter Miscellaneous Notes * Telephone Encounter - Lea Anand - 09/22/2023 8:54 AM EDT Tc from pt requesting r/s PE appt, chart writer attempted to schedule, no availability. documented in this encounter Plan of Treatment Upcoming Encounters Date Type Department Care Team (Late st Contact Info) Description 11/30/2024 9:30 AM EDT Procedure Visit [facility] MEDICINE [address] [place] [address] Mohini Urbano CNM [address] [place] [address] documented as of this encounter Visit Diagnoses Not on filedocumented in this encounter Additional Health Concerns Assessment Noted Time PHQ-9 Depression Total Score: 16 023 12:41 PM EDT documented as of this encounter Care Teams Neon Installer Relationship Specialty Start Date End Date Enid Elizabeth MD [address] [place] [address] PCP - General Family Medicine 06/21/18 documented as of this encounter
[2024-11-16 16:36] LABS: Appearance Urine Clear; Color Urine Yellow; Glucose Urine UA Negative (Negative); Leukocyte Esterase Urine Negative (Negative); Nitrite Urine Negative (Negative); PH 6.5 (5.0-9.0); Specific Gravity - Urine 1.015 (1.005-1.025); UMIC TRIGGER UA YES; Urine Blood Small (1+) (Negative); Urine Ketones Negative (Negative); Urine Protein Negative (Neg-Trace)
[2024-11-16 16:54] LABS: Bacteria Urine None Seen (None Seen); Hyaline Casts Urine 0-2 /LPF (0-2); RBC Urine 0-2 /HPF (0-2); Squamous Epithelial Cell Urine 0-2 /HPF (0-2); WBC Urine 0-5 /HPF (0-5)
[2024-11-16 23:25] LABS: CT PCR NOT DETECTED (Not Detect.); NG PCR NOT DETECTED (Not Detect.)
== END 2024-11-16 12:54 | disposition home or self-care (01) ==
LOC: HO.HHCL 12:53
PROVIDERS: Family Medicine; Visit Provider Advanced Practice Midwife
DX: R31.29 Other microscopic hematuria (principal); Z11.3 Encounter for screening for infections with a predominantly sexual mode of transmission
CPT/HCPCS: 81001; 87491; 87591

== ENCOUNTER 2024-11-20 09:23 | Outpatient (REF) | payer OTHER, SELFPAY ==
--- NOTE | ~2024-11-20 | US_ITS ---
CLINICAL HISTORY: IUD expulsion, please evaluate for retained IUD fragments US pelvis transvaginal Comparison: None Findings: Transvaginal scanning performed. The uterus is 8.2 cm length. Normal myometrium. No endometrial lesion, 13 mm thickness. Nabothian cysts are present. Right ovary 3.3 x 1.8 x 2.1 cm. Left ovary 2.9 x 1.9 x 2.8 cm. Benign 2.4 cm cyst noted. Normal color Doppler of both ovaries. No free fluid. IMPRESSION: No acute process. No evidence of retained IUD. This document has been electronically signed by: Harshad Yates MD on 11/21/2024 06:43:14
--- OUTSIDE RECORDS SUMMARY | 2024-11-20 10:03 | XMS_ITS | Encounter Summary ---
Author Organization [employer] Address [address] [facility] 7 [place] [address] Care Team Providers Care Real Estate Utilization Officer Name Role Phone Enid Elizabeth MD Primary Care Provider +1- [phone] Reason for Visit * Reason Onset Date Comments Reschedule 09/22/2023 Encounter Details Date Type Department Care Team ([facility] st Contact Info) Description 09/22/2023 Telephone [facility] MEDICINE [address] [place], [place] [phone] Enid Elizabeth MD [address] [place], [place] [phone] Reschedule Social History Tobacco Use Types Packs/Day [...] Tc from pt requesting r/s PE appt, telegraphic typewriter repairer attempted to schedule, no availability. documented in this encounter Plan of Treatment Upcoming Encounters Date Type Department Care Team (Late st Contact Info) Description 11/30/2024 9:30 AM EDT Procedure Visit [facility] MEDICINE [address] [place] [address] Mohini Urbano CNM [address] [place] [address] documented as of this encounter Visit Diagnoses Not on filedocumented in this encounter Additional Health Concerns Assessment Noted Time PHQ-9 Depression Total Score: 16 023 12:41 PM EDT documented as of this encounter Care Teams Real Estate Utilization Officer Relationship Specialty Start Date End Date Enid Elizabeth MD [address] [place] [address] PCP - General Family Medicine 06/21/18 documented as of this encounter
== END 2024-11-20 09:24 | disposition home or self-care (01) ==
LOC: HO.US 09:23
PROVIDERS: PCP Family Medicine; Visit Provider Advanced Practice Midwife
DX: T83.32XA Displacement of intrauterine contraceptive device, initial encounter (principal)
CPT/HCPCS: 76830; 76856

== ENCOUNTER → 2024-11-20 09:25 | Outpatient (BNV) | payer OTHER, SELFPAY | PROVIDERS: PCP Family Medicine; Visit Provider Radiology Vascular & Interventional Radiology | DX: Z30.432 Encounter for removal of intrauterine contraceptive device (principal) | CPT/HCPCS: 76830; 76856 ==

== ENCOUNTER 2024-12-06 16:34 | Outpatient (REF) | payer OTHER, SELFPAY ==
[2024-12-06 18:44] LABS: Bacterial Vaginosis PCR NEGATIVE (Negative); Candida Group PCR DETECTED (Not Detect); Candida glab krusei PCR NOT DETECTED (Not Detect); Trichomonas vaginalis PCR NOT DETECTED (Not Detect)
== END 2024-12-06 16:35 | disposition home or self-care (01) ==
LOC: HO.HHCLNP 16:34
PROVIDERS: Visit Provider Advanced Practice Midwife
DX: N89.8 Other specified noninflammatory disorders of vagina (principal)
CPT/HCPCS: 81515

== ENCOUNTER 2025-02-26 10:35 | Outpatient (REF) | payer OTHER, SELFPAY ==
[2025-02-26 11:48] LABS: Alanine Aminotransferase 13 U/L (0-31); Albumin Level 4.6 g/dL (3.5-5.0); Alkaline Phosphatase 58 U/L (39-117); Anion Gap 10 (12-20); Aspartate Amino Transferase 21 U/L (5-31); Blood Urea Nitrogen 11 mg/dL (9-16); Calcium 8.8 mg/dL (8.4-10.2); Carbon Dioxide 26 mmol/L (22-29); Chloride 110 mmol/L (96-108); Cholesterol 119 mg/dL (<200); Estimated Glomerular Filt Rate > 60; HDL Cholesterol 44 mg/dL (>40); Potassium 4.2 mmol/L (3.3-5.1); Sodium 142 mmol/L (135-145); Total Protein 7.1 g/dL (6.5-8.0); Triglycerides 58 mg/dL (<150)
--- OUTSIDE RECORDS SUMMARY | 2025-02-26 12:47 | XMS_ITS | Clinical Summary ---
Author Organization [employer] Address [address] [place] [address] Care Team Providers Care Rib Chopper Name Role Phone Enid Elizabeth MD Primary Care Provider [phone] Allergies No known active allergies Medications * This document contains information received from the source organization and may not represent a complete record from that organization. Contrave 8-90 MG ER tabletIndicatio ns:Obesity (BMI 30.0-34.9) TAKE 2 TABLETS BY MOUTH TWICE A DAY 120 tablet 11 5 Active ibuprofen (IBU) 800 MG tablet Take one tablet with food 1-2h prior to appointment. May also take 1 tablet every 8 hours with food during menses, up to 7 days. 21 tablet 5 Active miSOPROStol (Cytotec) [address] one tablet in mouth, on both sides between cheek and gums 1-2 hours prior to appointment (two tablets total) 2 tablet 5 Active Slynd 4 MG tablet TAKE 1 TABLET BY MOUTH EVERY DAY 28 tablet 5 Active norethindrone (Micronor) 0.35 MG tablet Take 1 tablet (0.35 mg) by mouth Once per day. Take at same time daily, no inactive pills. 28 tablet 5 12/07/19 26 Active Hospital, Clinic, or Other Facility Administered Medication Ordered Dose Route Frequency Start Date End Date Status lidocaine 2 % gelIndications:Encounter for initial insertion of intrauterine contraceptive device UR As needed 11/30/2024 Active lidocaine 2 % gelIndications:Encounter for IUD insertion TOP As needed 12/06/2024 Active Active Problems Patient Care Coordination No te Formatting of this note migh t be different from the original. [facility] Recreation Assistant: Zulema, member services number [phone], provider services line, , option 4 Track Laying Equipment Operator Agency:declines Problem Noted Date Diagnosed Date Hematuria 12/04/2024 Overview (12/04/2024): -Initial UA with financial accounting manager showed trace positive blood 11/06/24. Pt reported being on her period. Repeat on 11/16/24 showed small(1+) blood but RBC 0-2, no further work up at this time. Continue to monitor Assessment & Plan (12/04/2024 2:41 PM EDT): -Initial UA with financial accounting manager showed trace positive blood 11/06/24. Pt reported being on her period. Repeat on 11/16/24 showed small(1+) blood but RBC 0-2, no further work up at this time. Continue to monitor Abdominal migraine, intractable 05/01/2024 Overview (05/02/2024): - Recommending acupuncture - Also to look for elemental triggers of her migraines 05/01/24 Assessment & Plan (05/01/2024 1:23 PM EST): - Recommending acupuncture - Also to look for elemental triggers of her migraines 05/01/24 Anemia 03/01/2024 Overview (12/04/2024): Lab Results Component Value Date FERRITIN 10 [...] (03/01/2024 2:44 PM EDT): -ordered labs 03/01/24 Overweight with body mass in dex (BMI) of 29 to 29.9 in adult 03/01/2024 Overview (12/04/2024 6:54 AM EDT): -Discussed weight, diet, exercise with patient in [...] -doing well on Contrave, refill sent 07/27/24 -12/04/24 reports doing well on Contrave. Assessment & Plan (12/04/2024 2:43 PM EDT): -Discussed weight, diet, exercise with patient in [...] -doing well on Contrave, refill sent 07/27/24 -12/04/24 reports doing well on Contrave. Assessment & Plan (12/04/2024 6:54 AM EDT): >>ASSESSMENT AND PLAN FOR OBESITY (BMI 30.0-34.9) WRITTEN ON 07/27/2024 12:11 PM BY JOHN VO >>ASSESSMENT AND PLAN FOR OVERWEIGHT WRITTEN ON [...] considered to be 1.7 or 2.4 mg alf. -For Saxenda (liraglutide) Start with 0.6mg subcutaneously [...] dose is 3mg weekly Assessment & Plan (12/04/2024 6:54 AM EDT): >>ASSESSMENT AND PLAN FOR OBESITY (BMI 30.0-34.9) WRITTEN ON 07/27/2024 12:11 PM BY JOHN VO >>ASSESSMENT AND PLAN FOR OVERWEIGHT WRITTEN ON [...] within the next 9 - 12 months Assessment & Plan (12/04/2024 6:54 AM EDT): >>ASSESSMENT AND PLAN FOR OBESITY (BMI 30.0-34.9) WRITTEN ON 07/27/2024 12:12 PM BY JOHN VO -Discussed weight, diet, [...] -doing well on Contrave, refill sent 07/27/24 Other specified health status 04/28/2023 Overview (05/01/2024): -next physical exam due after 03/01/2025 -eye care facilitated by [facility] -dental home is [facility] -health care proxy 03/01/24 done Assessment & Plan (03/01/2024 2:37 PM EDT): -next physical exam due after -eye care facilitated by [facility] -dental home is [facility] -health care proxy 03/01/24 already done. 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 Follow up with [facility]: Not recommended for follow-up 2. Patient goal is to be connected to services. 3. Behavioral Recommendations a. Patient will utilize depression and anxiety coping sheets b. Patient will engage in services once they are established c. Patient will reach out to [facility], if needed Pica 10/01/2022 Family planning 10/01/2022 Overview (12/04/2024): Referred for tubal ligation 10/01/2022. -Pt has 3 childern and genetic disorder. -2 children are autistic. -She does not desire more children. ParaGard inserted around 2019. Pelvic ultrasound 10/2022 with IUD in good position. IUD expelled 08/04/24. No mention of IUD on CT or Xray 08/2024. Transvaginal US 11/21/24 no worrisome findings, 8.2cm uterus. Attempted ParaGard reinsertion 11/30/24, unsuccessful IUD insertion, unable to sound past internal os. -Planning on another trial at IUD insertion 12/06/24. If unsuccessful is interested in tubal ligation. Assessment & Plan (12/04/2024 2:41 PM EDT): Referred for tubal ligation 10/01/2022. -Pt has 3 childern and genetic disorder. -2 children are autistic. -She does not desire more children. ParaGard inserted around 2019. Pelvic ultrasound 10/2022 with IUD in good position. IUD expelled 08/04/24. No mention of IUD on CT or Xray 08/2024. Transvaginal US 11/21/24 no worrisome findings, 8.2cm uterus. Attempted ParaGard reinsertion 11/30/24, unsuccessful IUD insertion, unable to sound past internal os. -Planning on another trial at IUD insertion 12/06/24. If unsuccessful is interested in tubal ligation. Assessment & Plan (05/01/2024 1:26 PM EST): [...] Moderate major depression, single episode 2021 Overview (12/04/2024): 07/27/24 reports has TherapistTraci. -Declines needing psychiatrist at this time, well controlled on medications especially feeling improved with Contrave's secondary depression management. 12/04/24 reports has Psychiatrist. Assessment & Plan (12/04/2024 2:43 PM EDT): 07/27/24 reports has TherapistTraci. -Declines needing psychiatrist at this time, well controlled on medications especially feeling improved with Contrave's secondary depression management. 12/04/24 reports has Psychiatrist. Assessment & Plan (07/27/2024 12:20 PM EST): 07/27/24 reports has TherapistTraci. -Declines needing psychiatrist at this time, well controlled on medications especially feeling improved with Contrave's secondary depression management. Assessment & Plan (05/01/2024 1:24 PM EST): Waiting on getting into [facility]. -referred to internal behavioral health for faster track. -discussed taking Bupropion as a dual drug for depression and weight loss. Will titrate as tolerable. - Will be connecting patient with [facility] 05/01/24 Assessment & Plan (10/01/2022 1:19 PM [...] D deficiency 01/02/2022 Fragile X syndrome 07/15/2012 Resolved Problems Problem Noted Date Diagnosed Date Resolved Date Exercise counseling 07/26/2024 12/05/19 25 Assessment & Plan (07/27/2024 12:18 PM EST): Exercise Recommendations: At least 150 minutes of moderate-intensity physical activity per week, or an equivalent combination of moderate- and vigorous-intensity activity Dietary counseling 07/26/2024 5 Assessment & Plan (07/27/2024 12:12 PM EST): Dietary Recommendations: Fruits, vegetables, whole grains, protein foods, and fat-free or low-fat dairy products are healthy choices. Eat different types of protein foods in your diet. This can include seafood, lean meats, poultry, beans, peas, lentils, nuts, seeds, soy products, and eggs. Limit foods and beverages higher in added sugars, saturated fat, and sodium. Herpes zoster without complication 09/23/2023 12/04/2024 Assessment & Plan (09/23/2023 1:28 PM EDT): Valacyclovir prescribed with ibuprofen if symptoms persist or worse report back Encounters Date Type Department Care Team Description 01/30/[address] [address] Enid Elizabeth MD March Recalls 12/12/[address] [address] Lidia Pascual RN 12/08/2024 Results Follow-Up [address] [address] Mohini Urbano CNM Bacterial Vaginosis Panel 12/08/2024 Orders Only [address] [address] Mohini Urbano CNM 12/06/2024 9:30 AM EDT Procedure Visit [address] [address] Thao Jain FNP Encounter for IUD insertion (Primary Dx); Vaginal irritation 12/06/2024 Orders Only [address] [address] Mohini Urbano CNM 12/06/[address] [address] Mohini Urbano CNM 12/06/2024 Travel 12/05/[address] [address] Thao Jain FNP Chart Prep 12/04/2024 9:00 AM EDT Office Visit [address] [address] Enid Elizabeth MD Hematuria, unspecified type (Primary Dx); Overweight with body mass index (BMI) of 29 to 29.9 in adult; Dietary counseling; Exercise counseling; Family planning; Encounter for immunization; Moderate major depression, single episode ([facility]) 12/04/2024 Travel 11/30/2024 9:30 AM EDT Procedure Visit [facility] [address] [place] [id number] Mohini Urbano CNM Encounter for initial insertion of intrauterine contraceptive device (Primary Dx) 11/30/2024 Travel 11/29/[address] [facility] [address] [place] [address] Mohini Urbano CNM chart prep 11/28/2024 Travel 11/27/2024 Patient Outreach [facility] [address] [place], [place] [phone] Enid Elizabeth MD Pre-visit Planning (SDOH negative. Tobacco screening negative.) 11/27/[address] [facility] [address] [place] [address] Josephine Driver RN Results from Last 3 Months Immunizations Immunization Administration Dates Next Due DTaP 03/28/2014 HPV 9-Valent 04/29/2017,07/02/2016 HPV, Quadrivalent 03/12/2008 Hep B, adult 12/04/2024,05/01/2024,03/01/2024 Influenza Injectable Quadriv alant Preservative Free IIV4 MDCK 04/18/2019 Influenza injectable quadriv alent IIV4 with preservative 04/29/2017,05/18/2016 Influenza injectable quadriv alent preservative free 04/04/2021 Influenza, IIV3, injectable 02/26/2011 Influenza, Split (incl. ivanna fied surface antigen) 05/04/2013 Influenza, seasonal, injecta ble, preservative free 03/01/2024 Tdap 08/14/2019,05/18/2016 Family History Medical History Relation Name Comments Breast cancer Cousin 1 Throat cancer Cousin 2 Lung cancer Father Breast cancer Maternal Grandmother Hypertension Maternal Grandmother Diabetes Mother Hypertension Mother Relation Name Status Comments Cousin 1 Alive Cousin 2 Alive Father Maternal Grandmother Mother Social History Tobacco Use Types Packs/Day Years Used Date Smoking Tobacco: Never Passive Smoke Exposure: Never Smokeless Tobacco: Never Tobacco Cessation:Counseling Given: Not Answered Alcohol Use Standard Drinks/Week Comments Never 0 (1 standard drink = 0.6 oz pur e alcohol) Depression Answer Date Recorded Patient Health Questionnaire-9 Score 7 12/04/2024 Patient Health Questionnaire-9 Score 7 12/04/2024 Last PHQ-9: Questionnaire Data Not on file 0 12/04/2024 Housing Stability Answer Date Recorded What is your housing situation today? I have jasmina wilhelm 11/27/[address] you li ve. Do you have problems with any of the following? None of the above 11/27/2024 Food Insecurity Answer Date Recorded Within the past 12 months, y ou worried that your food would run out before you got money to buy more: Never True 11/27/2024 Within the past 12 months,th e food you bought just didn't last and you didn't have enough money to get more: Never True 02/2025 Transportation Answer Date Recorded In the past 12 months, has l ack of transportation kept you from medical appts, meetings, work or from getting things needed for daily living? No 11/27/2024 Utilities Answer Date Recorded In the past 12 months, has t he electric, gas, oil or water company threatened to shut off services in your home? No 11/27/2024 Depression Answer Date Recorded Patient Health Questionnaire-2 Score 2 12/04/2024 Internet Access Answer Date Recorded Internet Access Q1 Yes 02/18/2024 Internet Access Q2 Not on file 02/18/2024 Comments No Intention Date Recorded No desire to become (finding) 0 12/06/2024 Sex and Gender Information Value Date Recorded Sex Assigned at Female 04/20/2022 10:16 AM EDT Legal Sex Female 10:16 AM EDT Gender Identity Female 04/20/2022 10:16 AM EDT Sexual Orientation Bisexual 04/18/2024 11 :00 AM EDT Last Filed Vital Signs Vital Sign Reading Time Taken Comments Blood Pressure 132/88 12/06/2024 9:46 AM EDT Pulse 84 12/06/2024 9:46 AM EDT Temperature 36.7 C (98 F) 12/06/2024 9:46 AM EDT Respiratory Rate 18 12/06/2024 9:46 AM EDT Oxygen Saturation 98% 05/01/2024 11:06 AM EST Inhaled Oxygen Concentration - - Weight 71.7 kg (158 lb) 12/06/2024 9:46 AM EDT Height 154.9 cm (5' 1 ) 12/06/2024 9:46 AM EDT Body Mass Index 29.85 12/06/2024 9:46 AM EDT Plan of Treatment Health Maintenance Due Date Last Done Comments COVID-19 Vaccine ( season) 2025 07/25/2021, 11/08/2020, 10/18/2020 Influenza Vaccine (#1) 2025 , 04/04/2021, 04/18/2019, Additional history exists Alcohol/Substance Use Screening 05/01/2025 05/01/2024 SDOH Screening 11/27/2025 11/27/2024 Disability Screening 11/28/2025 11/28/2024 Depression Screening 12/04/2025 12/04/2024, 12/05/19 25 Family Planning (PISQ) 12/06/2025 12/06/2024 Tobacco Screening 12/06/2025 12/06/2024 Cervical Cancer Screening 04/17/2026 HPV/Cotest 04/17/2026 04/17/2021 Pap Smear 04/17/2026 04/17/2021, 04/17/2021 Lipid Panel 2029 2024 DTaP/Tdap/Td Vaccines (4 - Td or Tdap) 08/14/2029 08/14/2019, 05/18/2016, 03/28/2014 Zoster Vaccines (1 of 2) 2040 RSV Patients and Patients Aged 60 years or older (1 - 1-dose 75+ series) 2065 HPV Vaccines Completed 04/29/2017, 06/21, 03/12/2008 HIV Screening Completed 2024, 09/19, 01/01/2022 Hepatitis C Screening Completed 2024 , 10/02/2022, 01/01/2022 Hepatitis B Vaccines Completed 12/04/2024, 05/01/2024, 03/01/2024 HIB Vaccines Aged Out No longer eligi [...] Years) and At-Risk Patients (6 to 49) Years Aged Out No longer eligible based on patient's age to complete this topic RSV under 20 months Aged Out No longe r eligible based on patient's age to complete this topic Rotavirus Vaccines Aged Out No longer eligible based on patient's age to complete this topic Procedures Procedure Name Priority Date/Time Associated Diagnosis Comments BACTERIAL VAGINOSIS PANEL Routine 12/06/2024 10:48 AM EDT Vaginal irritation POCT , URINE Routine 12/06/2024 9:53 AM EDT Encounter for IUD insertion POCT , URINE Routine 11/30/2024 9:52 AM EDT Encounter for initial insertion of intrauterine contraceptive device HEPATITIS C AB W/REFL TO HCV RNA, [...] Relevant to Health Maintenance Results * (ABNORMAL) Bacterial Vaginosis Panel (12/06/2024 10:48 AM EDT) TRICHOMONAS VAGINALIS DETECTION BY PCR NOT DETECTED Not Detect [facility] BACTERIAL VAGINOSIS DETECTION BY PCR NEGATIVE Negative [facility] Comment:The BV organism targ ets of the Xpert Xpress MVP test can becommensal in women; Xpert Xpress MVP positive results forbacterial vaginosis should be considered in conjunction withother clinical and patient information to determine thedisease status. Organisms that are not detected by the XpertXpress MVP test have also been reported to be associatedwith BV and aerobic vaginitis.The Xpert Xpress MVP test performance has not been evaluatedin patients under the age of 14. VALERI GROUP DETECTION BY PCR DETECTED(A) Not Detect [facility] Valeri glab krusei PCR NOT DETECTED Not Detect [facility] Swab Vaginal structure / Unknown 12/06/2024 10:48 AM EDT 12/06/2024 4:34 PM EDT Mohini Urbano [facility] MICROBIOLOGY - GENERA L ORDERABLES Final Result [facility] [address] [place] [phone] * POCT , urine manually resulted (12/06/2024 9:53 AM EDT) Only the most recent of2 resultswithin the time period is included. Pathologist [facility] Preg Test, Ur Negative Negative, Indeterminate, None Detected, Invalid, Specimen unsatisfactory for evaluation, Weakly Positive, 2+ QC Media Lot # [id number] Lot# Expiration Date ,026 Urine 12/06/2024 9:53 AM EDT Mohini Urbano [facility] POINT OF CARE TEST ENTER/ EDIT ORDERABLES Final Result * Hepatitis C Antibody with Reflex to HCV, RNA, Quantitative, Real-Time PCR (2024 8:15 AM EDT) Pathologist [facility] Hepatitis C Antibody Nonreactive Nonreactive [facility] Comment:Antibodies to HCV no t detected; does not exclude early acuteHCV infection. Blood Venous blood specimen / Unknown 2024 8:15 AM EDT 2024 11:12 AM EDT Enid Elizabeth MD LAB BLOOD ORDERABLES Final Result Performing Organization Address [facility]/ZIP Co de Phone Number [facility] [address] [place] [address] [phone] * HIV-1/2 Antigen and Antibodies, Fourth Generation, with Reflexes (2024 8:15 AM EDT) HIV AB/AG Nonreactive Nonreactive [facility] Comment:HIV-1 p24 Ag and/or HIV-1/HIV-2 Ab not detected.A test result that is nonreactive does not exclude thepossibility of exposure to or infection with HIV-1 and/orHIV-2. Nonreactive results in this assay for individualswith prior exposure to HIV-1 and/or HIV-2 may be due toantigen and antibody levels that are below the limit ofdetection of this assay.The [employer] HIV Ag/Ab Combo assay result andsupplemental assay results should be interpreted inconjunction with the patient's clinical presentation,history and other laboratory results. If the results areinconsistent with clinical evidence, additional testing issuggested to confirm the result. Blood Venous blood specimen / Unknown 2024 8:15 AM EDT 2024 11:12 AM EDT Enid Elizabeth MD LAB BLOOD ORDERABLES Final Result Performing Organization Address [facility]/ZIP Co de Phone Number [facility] [address] [place] [phone] * Lipid Panel, Standard (2024 8:15 AM EDT) Triglycerides 61 <150 mg/dL [facility] Comment:Desirable Triglyceri de: less than 150 mg/dLBorderline High Triglyceride 150-199 mg/dLHigh Triglyceride: 200-499 mg/dLVery High Triglyceride: greater than or equal to 5OO mg/dL Cholesterol 133 <200 mg/dL [facility] Comment:Desirable Cholestero l: less than 200 mg/dLBorderline High Cholesterol: 200-239 mg/dLHigh Cholesterol: greater than 239 mg/dL LDL Cholesterol Calculated 76 <100 mg/dL [facility] Comment:Desirable LDL: less than 100 mg/dLNear Optimal/Above Optimal LDL: 110- 129 mg/dLBorderline High LDL: 130-159 mg/dLHigh LDL: 160-189 mg/dLVery High LDL: greater than or equal to 190 mg/dL HDL Cholesterol 45 >40 mg/dL [facility] Comment:Desirable HDL: great er than 40 mg/dL Note: This HDL assay may give artificially low results in patients with liver disease. Blood Venous blood specimen / Unknown 2024 8:15 AM EDT 2024 11:12 AM EDT Enid Elizabeth MD LAB BLOOD ORDERABLES Final Result [facility] [address] [place] [phone] * THINPREP TIS PAP AND HPV mRNA E6/E7, CT/NG, TRICH (04/17/2021 12:00 AM EDT) Chlamydia trachomatis RNA, TMA, Urogenital NOT DETECTED NOT DETECTED [facility] Clinical Information: None given [facility] COMMENT SEE COMMENT [facility] Comment: The analytical performance characteristics of this assay, when used to test SurePath(TM) specimens have been determined by [employer] The modifications have not been cleared or approved by the FDA. This assay has been validated pursuant to the CLIA regulations and is used for clinical purposes. For additional information, please refer to https://education.[employer] Area/faq/XJA475 (This link is being provided for information/ educational purposes only.) COMMENT SEE COMMENT [facility] Comment: EXPLANATORY NOTE: The Pap is a screening test for cervical cancer. It is not a diagnostic test and is subject to false negative and false positive results. It is most reliable when a satisfactory sample, regularly obtained, is submitted with relevant clinical findings and history, and when the Pap result is evaluated along with historic and current clinical information. COMMENT: This Pap test has been evaluated with computer assisted technology. [facility] Course Instructor: SEE COMMENT [facility] Comment: AR CT(ASCP) CT screening location: [place] [id number] HPV nRNA E6/E7 Not Detected Not Detected [facility] Comment: Methodology: Historic Preservationist-Mediated Amplification This assay detects E6/E7 viral messenger RNA (mRNA) from 14 high-risk HPV types (16,18,31,33,35,39,45,51,52,56,58,59,66,68). The analytical performance characteristics of this assay have been determined by [employer] The modifications have not been cleared or approved by the FDA. This assay has been validated pursuant to the CLIA regulations and is used for clinical purposes. For additional information, please refer to http://[employer].Crude Area/faq/LPJ530n4 (This link if provided for information/ educational [...] LAB SYSTEM Statement Of Adequacy: SEE COMMENT [facility] Comment: Satisfactory for evaluation. Endocervical/transformation zone component absent. Age and/or menstrual status not provided Trichomonas vaginalis, QL, TMA, PAP Vial NOT DETECTED NOT DETECTED [facility] Comment: The analytical performance characteristics of this assay have been determined by [employer] The modifications have not been cleared or approved by the FDA. This assay has been validated pursuant to the CLIA regulations and is used for clinical purposes. For additional information, please refer to http://[email or web address]ude Area/ faq/Trichomonastma (This link is being provided for information/ educational purposes only.) 04/17/2021 us Enid [place] MD LAB PATHOLOGY ORDERABLES F inal Result [facility] [address] * Pap Smear (04/17/2021 12:00 AM EDT) Swab Historical Provider LAB CYTOLOGY ORDERABLES F inal Result IMAGING from Last 3 Months or Most Recently Relevant to Health Maintenance Insurance [facility] < 65 Advance Directives Documents on File Type Date Recorded 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
--- OUTSIDE RECORDS SUMMARY | 2025-02-26 12:47 | XMS_ITS | Encounter Summary ---
Author Organization [employer] Address [address] [place] [address] 7 [place] [address] Care Team Providers Care Radial Drill Press Operator Name Role Phone Enid Elizabeth MD Primary Care Provider +1- [phone] Encounter Details Date Type Department Care Team (Late st Contact Info) Description 07/28/2022 Abstract [facility] MEDICINE [address] [place], [place] [phone] Enid Elizabeth MD [address] [place], [place] [phone] Social History Tobacco Use Types Packs/Day Years [...] on filedocumented in this encounter Care Teams Radial Drill Press Operator Relationship Specialty Start Date End Date Enid Elizabeth MD [address] [place] [address] PCP - General Family Medicine 06/21/18 documented as of this encounter
--- OUTSIDE RECORDS SUMMARY | 2025-02-26 12:47 | XMS_ITS | Encounter Summary ---
Author Organization [employer] Address [address] [facility] 7 [place] [address] Care Team Providers Care Core Rescuer Name Role Phone Enid Elizabeth MD Primary Care Provider +1- [phone] Reason for Visit * Reason Onset Date Comments Reschedule 09/22/2023 Encounter Details Date Type Department Care Team ([facility] st Contact Info) Description 09/22/2023 Telephone [facility] MEDICINE [address] [place], [place] [phone] Enid Elizabeth MD [address] [place], [place] [phone] Reschedule Social History Tobacco Use Types Packs/Day [...] Tc from pt requesting r/s PE appt, feature writer attempted to schedule, no availability. documented in this encounter Plan of Treatment Not on file documented as of this encounter Visit Diagnoses Not on filedocumented in this encounter Additional Health Concerns Assessment Noted Time PHQ-9 Depression Total Score: 16 023 12:41 PM EDT documented as of this encounter Care Teams Core Rescuer Relationship Specialty Start Date End Date Enid Elizabeth MD [address] [place] [id number] PCP - General Family Medicine 06/21/18 documented as of this encounter
--- OUTSIDE RECORDS SUMMARY | 2025-02-26 12:47 | XMS_ITS | Clinical Summary ---
Author Organization [facility] Address [address] [place] [address] Phone Care Team Providers Care Automotive Painter Name Role Phone Enid Elizabeth MD Primary Care Provider +1- [phone] Allergies No known active allergies Medications ondansetron ODT (ZOFRAN-ODT) 4 mg disintegrating tabletIndications:N ausea and vomiting, unspecified vomiting type Dissolve 1 tablet (4 mg total) on top of the tongue every 8 (eight) hours if needed for nausea or vomiting for up to 10 doses. 10 tablet 5 Active Surgical History Surgery Date Site/Laterality Comments OTHER SURGICAL HISTORY PROCEDURE: DENIES PREVIOUS SURGERY OTHER SURGICAL HISTORY PROCEDURE: MN PREPARATION MOULAGE CUSTOM BREAST IMPLANT; COMMENT: 2017 [...] 92 09/10/2024 9:57 PM EDT Temperature 37.1 C (98.8 F) 09/10/2024 9:57 PM EDT Respiratory Rate 17 09/10/2024 9:57 PM EDT Oxygen Saturation 100% 09/10/2024 9:57 PM EDT Inhaled Oxygen Concentration - - Weight 69.9 kg (154 lb) 09/10/2024 2:19 PM EDT Height 154.9 cm (5' 1 ) 09/10/2024 2:19 PM EDT Body Mass Index 29.1 09/10/2024 2:19 PM EDT Plan of Treatment Health Maintenance Due Date Last Done Comments Cervical Cancer Screening: Pap Smear 04/17/2024 04/17/2021, 04/18/2019 Depression Screening 06/21/2024 Hepatitis B Vaccines (3 of 3 - 19+ 3-dose series) 08/29/2024 05/01/2024, 03/01/2024 Medicare Annual Wellness Visit 09/10/2024 Social Influencers of Health Screening 09/10/2024 COVID-19 Vaccine ( - season) 2025 07/25/2021, 11/08/2020, 10/18/2020 Influenza Vaccine (#1) 2025 , 04/04/2021, 04/18/2019, Additional history exists Cholesterol Screening (Lipid Panel) 2029 2024 DTaP,Tdap,and Td Vaccines (4 - Td or Tdap) 08/14/2029 08/14/2019, 05/18/2016, 03/28/2014 HPV Vaccines Completed 04/29/2017, 06/21, 03/12/2008 HIV Screening Completed 2024 Hepatitis C Screening [...] 5 Years) and At-Risk Patients (6 to 49 Years) Aged Out No longer eligible based on patient's age to complete this topic RSV Immunization Patients Under 20 months Aged Out No longer eligible based on patient's age to complete this topic Varicella Vaccines Aged Out No longer eligible based on patient's age to complete this topic Procedures Procedure Name Priority Date/Time Associated Diagnosis Comments PAP SMEAR Routine 04/18/2019 from Last 3 Months or Most Recently Relevant to Health Maintenance Results * Pap smear (04/18/2019) 04/18/2019 Narrative HISTORICAL TESTING LAB RESULTING AGENCY - 04/20/2019 4:05 PM EDT [id number] THINPREP PAP, IMAGED: NEGATIVE FOR SQUAMOUS INTRAEPITHELIAL LESION AND MALIGNANCY . JIMMIE BERNAL(ASCP) (CASE ELECTRONICALLY SIGNED 04 20 2019) RESULT OF APTIMA HIGH RISK HPV ASSAY: HIGH RISK HPV: NEGATIVE (SEROTYPES 16,18,31,33,35,39,45,51,52,56,58,59,66,68) COMPLETED ON 2019-04-20 ADEQUACY: SATISFACTORY ENDOCERVICAL/TRANSFORMATION ZONE COMPONENT ABSENT. SOURCE: THINPREP PAP HPV ANY DX: REFLEX 16 AND 18, CERVICAL, IMAGED CLINICAL INFORMATION: HPV ANY DIAGNOSIS. LMP 01/21/19, , Z12.4, POS ASCUS. us Elisa Good CN LAB CYTOLOGY ORDERABLES Final R esult HISTORICAL TESTING LAB RESULTING AGENCY from Last 3 Months or Most Recently Relevant to Health Maintenance Insurance [facility] MEDICARE Member Subscriber Plan / Payer (Ef fective 2019-Present) Name:Samara Jose Relation to Subscriber:Self Name:Samara Jose Payer ID:[id number] Group ID:[id number] Type:Not on file Address: [place] [address] [address] [id number] Care Teams Automotive Painter Relationship Specialty Start Date End Date Glenn, MD Enid [address] [place] [phone] PCP - General 06/03/10
--- OUTSIDE RECORDS SUMMARY | 2025-02-26 12:47 | XMS_ITS | Encounter Summary ---
Author Organization [employer] Address [address] [place] [address] 7 [place] [address] Care Team Providers Care Hydraulic Corrugating Machine Operator Name Role Phone Enid Elizabeth MD Primary Care Provider +1- [phone] Reason for Visit * Reason Onset Date Comments triage 10/28/2022 Encounter Details Date Type Department Care Team ([facility] st Contact Info) Description 10/28/2022 Telephone [facility] MEDICINE [address] [place], [place] [phone] Enid Elizabeth MD [address] [place], [place] [phone] triage Social History Tobacco Use Types Packs/Day [...] documented as of this encounter Care Teams Hydraulic Corrugating Machine Operator Relationship Specialty Start Date End Date Enid Elizabeth MD [address] [place] [id number] PCP - General Family Medicine 06/21/18 documented as of this encounter
== END 2025-02-26 10:36 | disposition home or self-care (01) ==
LOC: HO.HHCL 10:35
PROVIDERS: PCP Family Medicine; Visit Provider Registered Nurse Psychiatric/Mental Health
DX: Z79.899 Other long term (current) drug therapy (principal)
CPT/HCPCS: 36415; 80053; 80061; 82248; 84443